=== PATIENT | female | born 1935 | race Caucasian/White ===

== ENCOUNTER 2016-09-28 12:06 | Emergency (ER) | payer MEDICARE ==
[~2016-09-28 12:06] MED LIST: ADV250INH INH; ASPI81TA85 PO; B-1210009 PO; CALC500T21 PO; CALC600T57 PO; CIPR500T3 PO; DUONSOL INH; FISH100049 PO; IRON325T PO; NEXI20CA PO; NEXI40CA PO; ZOCO40TA PO
[2016-09-28 15:09] LABS: BASO % 0.3 % (0.0-1.0); EOS # 0.3 K/mm3 (0.0-0.50); EOS % 3.7 % (0.0-3.0); LARGE UNSTAINED CELL # 0.1 K/mm3 (0.0-0.4); LARGE UNSTAINED CELL % 1.3 % (0.0-4.0); LYMPH # 1.6 K/mm3 (1.5-4.5); LYMPH % 19.7 % (24.0-44.0); MEAN CORPUSCULAR HEMOGLOBIN 31.3 pg (27.0-33.0); MEAN CORPUSCULAR HGB CONC 34.3 g/dl (32.0-36.5); MEAN CORPUSCULAR VOLUME 91.2 fl (80.0-96.0); MONO # 0.4 K/mm3 (0.0-0.8); MONO % 5.4 % (0.0-5.0); NEUTROPHILS # 5.6 K/mm3 (1.8-7.7); NEUTROPHILS % 69.6 % (36.0-66.0); PLATELET COUNT, AUTOMATED 234 k/mm3 (150-450); RED CELL DISTRIBUTION WIDTH 13.1 % (11.5-14.5)
--- NOTE | 2016-09-28 15:28 | REP ---
Left ribs four views: There is no rib fracture or other rib abnormality. Signed by Matt De La Torre MD 09/28/2016 03:19 P
[2016-09-28 15:30] LABS: ALBUMIN 3.1 GM/DL (3.2-5.2); ALKALINE PHOSPHATASE 80 U/L (45-117); ALT/SGPT 27 U/L (12-78); ANION GAP 9 MEQ/L (8-16); AST/SGOT 18 U/L (15-37); BILIRUBIN,TOTAL 0.6 MG/DL (0.2-1.0); BLOOD UREA NITROGEN 12 MG/DL (7-18); CARBON DIOXIDE LEVEL 27 MEQ/L (21-32); CHLORIDE LEVEL 99 MEQ/L (98-107); CREATININE FOR GFR 0.94 MG/DL (0.55-1.02); GLOMERULAR FILTRATION RATE > 60.0 (>32); GLUCOSE, FASTING 90 MG/DL (83-110); POTASSIUM SERUM 4.1 MEQ/L (3.5-5.1); SODIUM LEVEL 135 MEQ/L (136-145); T UPTAKE 38 % (30-39); TOTAL PROTEIN 7.5 GM/DL (6.4-8.2)
--- NOTE | 2016-09-28 15:30 | REP ---
Chest PA and lateral views: The PA view is included in the left rib series film file. There are no comparison studies. The left costophrenic angle is mildly effaced. This could represent pleural edema or a small left pleural effusion. There is no pneumothorax. The left lung is otherwise clear. Right lung is clear. Cardiac size is enlarged l. The todd, mediastinum, and bony thorax are unremarkable except for thoracic kyphosis. Impression: Pleural thickening versus a small left pleural effusion. Cardiomegaly. Kyphosis. Half Otherwise, negative PA and lateral chest. Signed by Matt De La Torre MD 09/28/2016 03:22 P
[2016-09-28] MEDS ORDERED: BISOPROLOL FUMARATE 5 MG TAB As Ordered ONE (15:33)
--- NOTE | 2016-09-28 15:56 | REP ---
RIGHT KNEE SERIES: Five views of the right knee were performed. There is no acute fracture or dislocation. There is mild chondrocalcinosis both in the medial and lateral joint compartments. There is mild of compartment narrowing. There is no joint effusion. IMPRESSION: No evidence of acute fracture or dislocation. Signed by Matt Lloyd MD 09/28/2016 07:58 P
--- NOTE | 2016-09-28 16:02 | REP ---
PELVIS AND LEFT HIP: AP view of the pelvis and AP and frog leg views of the left hip are performed. There is no acute fracture or dislocation. Moderate degenerative changes are seen at both hip joints with joint space narrowing, subchondral sclerosis and spurring. There is significant sclerosis at the pubic symphysis. IMPRESSION; Degenerative change. No evidence of acute fracture or dislocation. Signed by Matt Lloyd MD 09/28/2016 07:58 P
--- NOTE | 2016-09-28 16:48 | EDDOCDS ---
Nurse's Notes [facility] Name: Long Aaron Age: 81 yrs Sex: Female : 1935 Arrival Date: 09/28/2016 Time: 12:06 Bed 9 Private MD: Nico Torres Diagnosis: Chest pain, unspecified-Musculoskeletal Chest Pain;Chronic atrial fibrillation;Cardiomegaly;Pain in left hip;Osteoarthritis of hip-Left;Pain in right knee-Chondrocalcinosis on x-ray;Other kyphosis;Pleural effusion, not elsewhere classified-vs Pleural Thickening Presentation: 09/28 12:10 Presenting complaint: Patient states: pt reports falling yesterday in the kitchen. pt ead states "I just turned too abruptly and lost my balance." Pt reports left knee, left rib, and back pain. Denies hitting head, no LOC. Adult Sepsis Screening: The patient does not have new or worsening altered mentation. Patient's respiratory rate is less than 22. Systolic blood pressure is greater than 100. Patient has a qSOFA score of 0- Negative Sepsis Screen. Suicide/Homicide risk assessment- the patient denies having any suicidal and/or homicidal ideations and does not present with any other emotional, behavioral or mental health complaints. Status: Patient is not a customer services supervisor or dependent. Transition of care: patient was not received from another setting of care. 12:10 Acuity: PRIMO Level 4 ead 12:10 Method Of Arrival: Walkin/Carried/Asstd ead 14:14 Acuity: PRIMO Level 3 ead Triage Assessment: 12:14 General: Appears in no apparent distress, comfortable, well nourished, well groomed, ead Behavior is appropriate for age, cooperative. Pain: Location: back, buttocks and left knee. Pain: Pain currently is 8 out of 10 on a pain scale. Neurological: Level of Consciousness is awake, alert, obeys commands, Oriented to person, place, time. Respiratory: Airway is patent Respiratory effort is even, unlabored. Derm: Skin is pink, warm & dry. Musculoskeletal: Reports pain in back, buttocks and left knee. Historical: - Allergies: PENICILLINS; SULFA (SULFONAMIDES); - Home Meds: 1. Symbicort inhalation inhalation as needed 2. simvastatin 20 mg oral tab 2 times per day 3. bisoprolol fumarate 5 mg oral tab 0.5 tab once daily - PMHx: Asthma; Hypercholesterolemia; - PSHx: none; - Social history: No barriers to communication noted, The patient speaks fluent Iranian, Speaks appropriately for age, Smoking status: Patient states was never smoker of tobacco. - Family history: Not pertinent. - : The pt / caregiver states he / she is not on anticoagulants. Home medication list is obtained from the patient, family members. - Exposure Risk Screening:: None identified. Screenin:36 Screening information is obtained from the patient, family members. Fall risk: No risks hs1 identified. Assistance ADL's: requires no assistance with activities of daily living. Abuse/DV Screen: The patient / caregiver reports he/she is: not in a situation that causes fear, pain or injury. Nutritional screening: No deficits noted. Advance Directives: There is no active DNR order. home support is adequate. Assessment: 13:00 General: Appears in no apparent distress, comfortable, Behavior is appropriate for age, hs1 cooperative. Pain:. Pain: Location: buttocks and back and left knee Pain currently is 6 out of 10 on a pain scale. Neurological: Level of Consciousness is awake, alert, obeys commands, Oriented to person, place, time. Cardiovascular: Rhythm is atrial fibrillation. Respiratory: No deficits noted. Derm: Skin is pink, warm & dry. normal. 13:29 General: pt ambulated to bathroom without difficulty. ead 14:25 Reassessment: Patient appears in no apparent distress at this time. Patient states hs1 feeling better. Patient states symptoms have improved. Pt resting after xrays taken. Family continuing at bedside. . 15:48 Reassessment: Patient states feeling better. Patient states symptoms have improved. hs1 General: Appears in no apparent distress, comfortable, Behavior is appropriate for age, cooperative. Pain: Location: back Pain currently is 4 out of 10 on a pain scale. Respiratory: No deficits noted. GI: No deficits noted. 16:39 General: Appears in no apparent distress, comfortable, Behavior is appropriate for age, hs1 cooperative. Pain: Location: back Pain currently is 4 out of 10 on a pain scale. Derm: Bruising that is dark purple, on left mid back. Vital Signs: 12:08 BP 127 / 78; Pulse 120; Resp 18 S; Temp 97.9(T); Pulse Ox 96% on R/A; Weight 75.75 kg dd6 (R); Height 5 ft. 5 in. (165.10 cm) (R); 15:15 BP 128 / 72; Pulse 114 MON; Pulse Ox 96% ; hs1 15:55 BP 135 / 80; Pulse 96 MON; Pulse Ox 93% ; hs1 16:21 BP 124 / 76; Pulse 100 MON; Pulse Ox 95% ; hs1 16:22 BP 132 / 86 (auto/); Pulse 98; Resp 18; Temp 97.1(O); Pulse Ox 96% ; Pain 4/10; hs1 12:08 Body Mass Index 27.79 (75.75 kg, 165.10 cm) dd6 Vitals: 12:08 Log In Time: September 28, 2016 at 12:06. dd6 ED Course: 12:07 Patient visited by Ezra Kiran PCA. dd6 12:07 Patient moved to Waiting dd6 12:08 Nico Torres is Private Physician. dd6 12:09 Patient moved to Pre RCE dd6 12:12 Triage Initiated ead 12:54 Patient moved to Triage 2 ead 13:00 Inserted saline lock: 20 gauge in right antecubital area and blood collected. The hs1 patient tolerated the procedure well. 13:29 Patient visited by Alejandrina Kumar RN. ead 13:54 Lyn Adams PA-C is PHCP. ef1 13:54 Abigail Garcia MD is Attending Physician. ef1 14:02 Patient visited by Lyn Adams PA-C. ef1 14:26 EKG done. mdr 14:27 Patient visited by Daniel Gil PCA. mdr 14:27 EKG done. (by ED staff). Reviewed by Abigail Garcia MD. mdr 14:31 Betty Elliott, BALA is Primary Nurse. sd1 14:31 Patient moved to 19 sd1 14:31 Patient moved to 9 sd1 15:01 Complete Comphrensive Metabolic Sent. hs1 15:01 CBC with Diff Sent. hs1 15:01 Troponin Sent. hs1 15:02 Patient visited by Betty Elliott RN. hs1 15:15 THYROID PROFILE Sent. hs1 15:16 Patient visited by Lyn Adams PA-C. ef1 15:36 [facility] Payment Agreement was scanned into [employer] and attached to record. jp5 15:47 Patient visited by Lyn Adams PA-C. ef1 15:52 Rib Unilat W/PA Chest Only Returned. EDMS 15:52 Chest, 1 View Returned. EDMS 16:09 Patient visited by Lyn Adams PA-C. ef1 16:36 Nico Torres is Referral Physician. ef1 16:36 Darryl Sean is Referral Physician. ef1 16:37 Discontinued IV lock intact, bleeding controlled, pressure dressing applied, No hs1 redness/swelling at site. No procedures done that require assistance. 16:39 The patient / caregiver is instructed regarding the plan of care and ED course. hs1 16:44 Knee, Complete Returned. EDMS 16:44 Hip,AP,LAT to include Pelvis Returned. EDMS Administered Medications: 15:46 Drug: Bisoprolol 2.5 mg [bisoprolol fumarate 5 mg tablet (0.5 tabs)] Route: PO; hs1 Order Results: Lab Order: Cardiac Injury Profile; SPEC'M 09/28/16 14:49 Test: CPK CREATINE PHOSPHOKINASE; Value: 58; Range: 26-192; Units: U/L; Status: F Test: CK-MB VALUE MASS; Value: 1.4; Range: 0.0-3.6; Units: NG/ML; Status: F Test: MB/CK RELATIVE INDEX; Value: 2.41; Range: < OR =4; Status: F Test Note: ; DIAGNOSIS CRITERIA MMB ng/ml Relative Index (RI) NON-AMI < or = 5 N/A MARTINEZ ZONE > 5 < or = 4 AMI > 5 > 4 Lab Order: Troponin; SPEC'M 09/28/16 14:49 Test: TROPONIN I; Value: < 0.02; Range: < 0.10; Units: NG/ML; Status: F Test Note: ; Troponin I Reference Interval for [place] LOCI: 99th Percentile= 0.00-0.045 ng/ml Risk Stratification: <= 0.10 ng/ml Decreased Risk for Adverse Clinical Events. 0.10-1.50 ng/ml Increased Risk for Adverse Clinical Events. Evaluation of additional criterion and/or repeat testing in 2-6 hours is suggested to rule out myocardial damage. >= 1.50 ng/ml Indicative of Myocardial Injury. Lab Order: CBC with Diff; SPEC'M 09/28/16 14:49 Test: WHITE BLOOD COUNT; Value: 8.0; Range: 4.0-10.0; Units: K/mm3; Status: F Test: RED BLOOD COUNT; Value: 4.28; Range: 4.00-5.40; Units: M/mm3; Status: F Test: HEMOGLOBIN; Value: 13.4; Range: 12.0-16.0; Units: g/dl; Status: F Test: HEMATOCRIT; Value: 39.0; Range: 36.0-47.0; Units: %; Status: F Test: MEAN CORPUSCULAR VOLUME; Value: 91.2; Range: 80.0-96.0; Units: fl; Status: F Test: MEAN CORPUSCULAR HEMOGLOBIN; Value: 31.3; Range: 27.0-33.0; Units: pg; Status: F Test: MEAN CORPUSCULAR HGB CONC; Value: 34.3; Range: 32.0-36.5; Units: g/dl; Status: F Test: RED CELL DISTRIBUTION WIDTH; Value: 13.1; Range: 11.5-14.5; Units: %; Status: F Test: PLATELET COUNT, AUTOMATED; Value: 234; Range: 150-450; Units: k/mm3; Status: F Test: NEUTROPHILS %; Value: 69.6; Range: 36.0-66.0; Abnormal: Above high normal; Units: %; Status: F Test: LYMPH %; Value: 19.7; Range: 24.0-44.0; Abnormal: Below low normal; Units: %; Status: F Test: MONO %; Value: 5.4; Range: 0.0-5.0; Abnormal: Above high normal; Units: %; Status: F Test: EOS %; Value: 3.7; Range: 0.0-3.0; Abnormal: Above high normal; Units: %; Status: F Test: BASO %; Value: 0.3; Range: 0.0-1.0; Units: %; Status: F Test: LARGE UNSTAINED CELL %; Value: 1.3; Range: 0.0-4.0; Units: %; Status: F Test: NEUTROPHILS #; Value: 5.6; Range: 1.8-7.7; Units: K/mm3; Status: F Test: LYMPH #; Value: 1.6; Range: 1.5-4.5; Units: K/mm3; Status: F Test: MONO #; Value: 0.4; Range: 0.0-0.8; Units: K/mm3; Status: F Test: EOS #; Value: 0.3; Range: 0.0-0.50; Units: K/mm3; Status: F Test: BASO #; Value: 0.0; Range: 0.0-0.2; Units: K/mm3; Status: F Test: LARGE UNSTAINED CELL #; Value: 0.1; Range: 0.0-0.4; Units: K/mm3; Status: F Lab Order: Complete Comphrensive Metabolic; SPEC'M 09/28/16 14:49 Test: GLUCOSE, FASTING; Value: 90; Range: 83-110; Units: MG/DL; Status: F Test: BLOOD UREA NITROGEN; Value: 12; Range: 7-18; Units: MG/DL; Status: F Test: CREATININE FOR GFR; Value: 0.94; Range: 0.55-1.02; Units: MG/DL; Status: F Test: GLOMERULAR FILTRATION RATE; Value: > 60.0; Range: >32; Status: F Test: SODIUM LEVEL; Value: 135; Range: 136-145; Abnormal: Below low normal; Units: MEQ/L; Status: F Test: POTASSIUM SERUM; Value: 4.1; Range: 3.5-5.1; Units: MEQ/L; Status: F Test: CHLORIDE LEVEL; Value: 99; Range: 98-107; Units: MEQ/L; Status: F Test: CARBON DIOXIDE LEVEL; Value: 27; Range: 21-32; Units: MEQ/L; Status: F Test: ANION GAP; Value: 9; Range: 8-16; Units: MEQ/L; Status: F Test: CALCIUM LEVEL; Value: 9.0; Range: 8.8-10.2; Units: MG/DL; Status: F Test: AST/SGOT; Value: 18; Range: 15-37; Units: U/L; Status: F Test: ALT/SGPT; Value: 27; Range: 12-78; Units: U/L; Status: F Test: ALKALINE PHOSPHATASE; Value: 80; Range: 45-117; Units: U/L; Status: F Test: BILIRUBIN,TOTAL; Value: 0.6; Range: 0.2-1.0; Units: MG/DL; Status: F Test: TOTAL PROTEIN; Value: 7.5; Range: 6.4-8.2; Units: GM/DL; Status: F Test: ALBUMIN; Value: 3.1; Range: 3.2-5.2; Abnormal: Below low normal; Units: GM/DL; Status: F Test: ALBUMIN/GLOBULIN RATIO; Value: 0.70; Range: 1.00-1.93; Abnormal: Below low normal; Status: F Test Note: ; Units are mL/min/1.73 m2 Chronic Kidney Disease Staging per NKF: Stage I & II GFR >=60 Normal to Mildly Decreased Stage III GFR 30-59 Moderately Decreased Stage IV GFR 15-29 Severely Decreased Stage V GFR <15 Very Little GFR Left ESRD GFR <15 on VOCATIONAL ADVISER Lab Order: THYROID PROFILE; [facility]'M 09/28/16 14:49 Test: T UPTAKE; Value: 38; Range: 30-39; Units: %; Status: F Test: THYROXINE (T4); Value: 11.0; Range: 4.5-12.0; Units: UG/DL; Status: F Test: FREE THYROXINE INDEX; Value: 4.2; Range: 1.3-4.8; Units: %; Status: F Test: THYROID STIMULATING HORMONE; Value: 4.550; Range: 0.358-3.740; Abnormal: Above high normal; Units: uIU/ML; Status: F Radiology Order: Rib Unilat W/PA Chest Only Test: Rib Unilat W/PA Chest Only REASON FOR EXAMINATION: Trauma; Left ribs four views:; ; There is no rib fracture or other rib abnormality.; ; ; Signed by; Matt De La Torre MD 09/28/2016 03:19 P; Radiology Order: Knee, Complete Test: Knee, Complete REASON FOR EXAMINATION: Trauma; ; RIGHT KNEE SERIES:; ; Five views of the right knee were performed. There is no acute fracture or; dislocation. There is mild chondrocalcinosis both in the medial and lateral joint; compartments. There is mild pf compartment narrowing. There is no joint effusion.; ; ; IMPRESSION:; No evidence of acute fracture or dislocation.; ; Unreviewed; Radiology Order: Hip,AP,LAT to include Pelvis Test: Hip,AP,LAT to include Pelvis REASON FOR EXAMINATION: Trauma; ; PELVIS AND LEFT HIP:; ; AP view of the pelvis and AP and frog leg views of the left hip are performed.; There is no acute fracture or dislocation. Moderate degenerative changes are seen; at both hip joints with joint space narrowing, subchondral sclerosis and; spurring. There is significant sclerosis at the pubic symphysis.; ; IMPRESSION;; Degenerative change. No evidence of acute fracture or dislocation.; ; ; ; Unreviewed; Radiology Order: Chest, 1 View Test: Chest, 1 View REASON FOR EXAMINATION: Chest Pain; Chest PA and lateral views:; ; The PA view is included in the left rib series film file.; ; There are no comparison studies.; ; The left costophrenic angle is mildly effaced. This could represent pleural; edema or a small left pleural effusion.; ; There is no pneumothorax. The left lung is otherwise clear.; ; Right lung is clear. Cardiac size is enlarged l. The todd, mediastinum, and; bony thorax are unremarkable except for thoracic kyphosis.; ; Impression:; ; Pleural thickening versus a small left pleural effusion. Cardiomegaly. Kyphosis.; Half Otherwise, negative PA and lateral chest.; ; ; Signed by; Matt De La Torre MD 09/28/2016 03:22 P; Outcome: 16:36 Discharge ordered by Provider. ef1 16:37 Discharge Assessment: Patient awake, alert and oriented x 3. No cognitive and/or hs1 functional deficits noted. Patient verbalized understanding of disposition instructions. patient administered narcotics - no. The following High Risk Discharge criteria are identified: None. Discharged to home ambulatory. Condition: stable. Discharge instructions given to patient, family, Instructed on discharge instructions, follow up and referral plans. medication usage, Demonstrated understanding of instructions, medications, Pt was receptive of discharge instructions/ teaching. No special radiology studies were completed. Property sent home with patient. 16:47 Patient left the ED. hs1 Signatures: Dispatcher [facility] Abigail Garcia MD MD sd1 Ezra Kiran, CUSHION ASSEMBLER CUSHION ASSEMBLER dd6 Lyn Adams PA-C PABrandyC ef1 Betty Elliott, RN RN hs1 Alejandrina Kumar,BALA RN ead Itzel Bright jp5 Daniel Gil, CUSHION ASSEMBLER CUSHION ASSEMBLER mdr Corrections: (The following items were deleted from the chart) 15:14 15:01 THYROID PROFILE+LAB sent. hs1 EDMS 15:15 13:00 Cardiovascular: Rhythm is sinus rhythm No ectopy. hs1 hs1 MTDD
--- NOTE | 2016-09-28 16:48 | EDDOCDS ---
Physician Documentation [facility] Name: Long Aaron Age: 81 yrs Sex: Female : 1935 Arrival Date: 09/28/2016 Time: 12:06 Bed 9 Private MD: Nico Torres Disposition: 09/28/16 16:36 Discharged to Home/Self Care. Impression: Chest pain, unspecified - Musculoskeletal Chest Pain, Chronic atrial fibrillation, Cardiomegaly, Pain in left hip, Osteoarthritis of hip - Left, Pain in right knee - Chondrocalcinosis on x-ray, Other kyphosis, Pleural effusion, not elsewhere classified - vs Pleural Thickening. - Condition is Stable. - Discharge Instructions: Musculoskeletal Pain, Pleural Effusion, Arthritis, Nonspecific, Dxni-rt-Ugne. - Prescriptions for Tylenol- Codeine #3 300-30 mg Oral Tablet - take 1 tablet by ORAL route every 6 hours As needed MDD: 4 tabs; 10 tablet. - Medication Reconciliation, Local Pharmacy Hours form. - Follow up: Nico Torres; When: 1 - 2 days; Reason: Recheck today's complaints, Continuance of care. Follow up: Emergency Department; Reason: Worsening of conditions. Follow up: Darryl Sena; When: Call to arrange an appointment; Reason: Further diagnostic work-up, Recheck today's complaints, Continuance of care. - Problem is new. - Symptoms have improved. Historical: - Allergies: PENICILLINS; SULFA (SULFONAMIDES); - Home Meds: 1. Symbicort inhalation inhalation as needed 2. simvastatin 20 mg oral tab 2 times per day 3. bisoprolol fumarate 5 mg oral tab 0.5 tab once daily - PMHx: Asthma; Hypercholesterolemia; - PSHx: none; - Social history: No barriers to communication noted, The patient speaks fluent Italian, Speaks appropriately for age, Smoking status: Patient states was never smoker of tobacco. - Family history: Not pertinent. - : The pt / caregiver states he / she is not on anticoagulants. Home medication list is obtained from the patient, family members. - Exposure Risk Screening:: None identified. Vital Signs: 09/28 12:08 BP 127 / 78; Pulse 120; Resp 18 S; Temp 97.9(T); Pulse Ox 96% on R/A; Weight 75.75 kg / dd6 167 lbs (R); Height 5 ft. 5 in. (165.10 cm) (R); 15:15 BP 128 / 72; Pulse 114 MON; Pulse Ox 96% ; hs1 15:55 BP 135 / 80; Pulse 96 MON; Pulse Ox 93% ; hs1 16:21 BP 124 / 76; Pulse 100 MON; Pulse Ox 95% ; hs1 16:22 BP 132 / 86 (auto/); Pulse 98; Resp 18; Temp 97.1(O); Pulse Ox 96% ; Pain 4/10; hs1 12:08 Body Mass Index 27.79 (75.75 kg, 165.10 cm) dd6 MDM: 14:13 IV Saline Lock ordered. ef1 14:13 Rib Unilat W/PA Chest Only Ordered. EDMS 14:13 Knee, Complete Ordered. EDMS 14:13 Hip,AP,LAT to include Pelvis Ordered. EDMS 14:14 ECG WITH READING ER PHYS+CARDIAG ordered. EDMS 14:14 Cardiac Injury Profile Ordered. EDMS 14:14 Troponin Ordered. EDMS 14:14 CBC with Diff Ordered. EDMS 14:14 Complete Comphrensive Metabolic Ordered. EDMS 14:30 Steam Cleaning Machine Operator/Pulse Ox/q 30 min VS ordered. sd1 14:32 Chest, 1 View Ordered. EDMS 15:14 THYROID PROFILE Ordered. EDMS 15:16 CBC with Diff Reviewed. ef1 15:33 Bisoprolol 2.5 mg PO once ordered. sd1 15:33 Complete Comphrensive Metabolic Reviewed. sd1 15:33 Troponin Reviewed. sd1 15:36 [facility] Payment Agreement was scanned into [employer] and attached to record. jp5 15:36 Financial registration complete. jp5 16:09 Complete Comphrensive Metabolic Reviewed. ef1 16:09 THYROID PROFILE Reviewed. ef1 16:09 Cardiac Injury Profile Reviewed. ef1 16:09 Troponin Reviewed. ef1 16:09 Rib Unilat W/PA Chest Only Reviewed. ef1 16:09 Chest, 1 View Reviewed. ef1 Administered Medications: 15:46 Drug: Bisoprolol 2.5 mg [bisoprolol fumarate 5 mg tablet (0.5 tabs)] Route: PO; hs1 Signatures: Dispatcher [employer] EDMS Abigail Garcia MD MD sd1 Lyn Adasm PA-C PA-C ef1 Betty Elliott, RN RN hs1 Alejandrina Kumar,RN RN Itzel Arcos jp5 The chart was reviewed and I authenticate all verbal orders and agree with the evaluation and treatment provided.Corrections: (The following items were deleted from the chart) 15:14 14:30 THYROID PROFILE+LAB ordered. EDMS EDMS Attachments: 15:36 [facility] Payment Agreement jp5 MTDD
--- NOTE | 2016-09-28 20:28 | ECGEPIP ---
Stationary ECG Study [facility] - ED Test Date: 2016-09-28 Pat Name: CRISTINA ERNST Department: Room: - Gender: F Drill Press Set Up Operator: : 1935 Requested By: Lyn Adams PA-C Order Number: [id number] Reading MD: Abigail Garcia Measurements Intervals [place] Rate: 104 P: IN: 0 QRS: 14 QRSD: 93 T: 19 QT: 340 QTc: 449 Interpretive Statements ATRIAL FIBRILLATION WITH RAPID VENTRICULAR RESPONSE ABNORMAL RHYTHM ECG LOW [place] NSTTW ABNORMALITY NO PRIOR FOR COMPARISON Electronically Signed On 09-28-2016 20:27:55 EST by Abigail Garcia
--- NOTE | 2016-09-30 17:48 | EDDOCDS ---
Nurse's Notes [facility] Name: Long Ernst Age: 81 yrs Sex: Female : 1935 Arrival Date: 09/28/2016 Time: 12:06 Bed 9 Private MD: Nico Torres Diagnosis: Chest pain, unspecified-Musculoskeletal Chest Pain;Chronic atrial fibrillation;Cardiomegaly;Pain in left hip;Osteoarthritis of hip-Left;Pain in right knee-Chondrocalcinosis on x-ray;Other kyphosis;Pleural effusion, not elsewhere classified-vs Pleural Thickening Presentation: 09/28 12:10 Presenting complaint: Patient states: pt reports falling yesterday in the kitchen. pt ead states "I just turned too abruptly and lost my balance." Pt reports left knee, left rib, and back pain. Denies hitting head, no LOC. Adult Sepsis Screening: The patient does not have new or worsening altered mentation. Patient's respiratory rate is less than 22. Systolic blood pressure is greater than 100. Patient has a qSOFA score of 0- Negative Sepsis Screen. Suicide/Homicide risk assessment- the patient denies having any suicidal and/or homicidal ideations and does not present with any other emotional, behavioral or mental health complaints. 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 Transition of care: patient was not received from another setting of care. 12:10 Acuity: PRIMO Level 4 ead 12:10 Method Of Arrival: Walkin/Carried/Asstd ead 14:14 Acuity: PRIMO Level 3 ead Triage Assessment: 12:14 General: Appears in no apparent distress, comfortable, well nourished, well groomed, ead Behavior is appropriate for age, cooperative. Pain: Location: back, buttocks and left knee. Pain: Pain currently is 8 out of 10 on a pain scale. Neurological: Level of Consciousness is awake, alert, obeys commands, Oriented to person, place, time. Respiratory: Airway is patent Respiratory effort is even, unlabored. Derm: Skin is pink, warm & dry. Musculoskeletal: Reports pain in back, buttocks and left knee. Historical: - Allergies: PENICILLINS; SULFA (SULFONAMIDES); - Home Meds: 1. Symbicort inhalation inhalation as needed 2. simvastatin 20 mg oral tab 2 times per day 3. bisoprolol fumarate 5 mg oral tab 0.5 tab once daily - PMHx: Asthma; Hypercholesterolemia; - PSHx: none; - Social history: No barriers to communication noted, The patient speaks fluent Syrian, Speaks appropriately for age, Smoking status: Patient states was never smoker of tobacco. - Family history: Not pertinent. - : The pt / caregiver states he / she is not on anticoagulants. Home medication list is obtained from the patient, family members. - Exposure Risk Screening:: None identified. Screenin:36 Screening information is obtained from the patient, family members. Fall risk: No risks hs1 identified. Assistance ADL's: requires no assistance with activities of daily living. Abuse/DV Screen: The patient / caregiver reports he/she is: not in a situation that causes fear, pain or injury. Nutritional screening: No deficits noted. Advance Directives: There is no active DNR order. home support is adequate. Assessment: 13:00 General: Appears in no apparent distress, comfortable, Behavior is appropriate for age, hs1 cooperative. Pain:. Pain: Location: buttocks and back and left knee Pain currently is 6 out of 10 on a pain scale. Neurological: Level of Consciousness is awake, alert, obeys commands, Oriented to person, place, time. Cardiovascular: Rhythm is atrial fibrillation. Respiratory: No deficits noted. Derm: Skin is pink, warm & dry. normal. 13:29 General: pt ambulated to bathroom without difficulty. ead 14:25 Reassessment: Patient appears in no apparent distress at this time. Patient states hs1 feeling better. Patient states symptoms have improved. Pt resting after xrays taken. Family continuing at bedside. . 15:48 Reassessment: Patient states feeling better. Patient states symptoms have improved. hs1 General: Appears in no apparent distress, comfortable, Behavior is appropriate for age, cooperative. Pain: Location: back Pain currently is 4 out of 10 on a pain scale. Respiratory: No deficits noted. GI: No deficits noted. 16:39 General: Appears in no apparent distress, comfortable, Behavior is appropriate for age, hs1 cooperative. Pain: Location: back Pain currently is 4 out of 10 on a pain scale. Derm: Bruising that is dark purple, on left mid back. Vital Signs: 12:08 BP 127 / 78; Pulse 120; Resp 18 S; Temp 97.9(T); Pulse Ox 96% on R/A; Weight 75.75 kg dd6 (R); Height 5 ft. 5 in. (165.10 cm) (R); 15:15 BP 128 / 72; Pulse 114 MON; Pulse Ox 96% ; hs1 15:55 BP 135 / 80; Pulse 96 MON; Pulse Ox 93% ; hs1 16:21 BP 124 / 76; Pulse 100 MON; Pulse Ox 95% ; hs1 16:22 BP 132 / 86 (auto/); Pulse 98; Resp 18; Temp 97.1(O); Pulse Ox 96% ; Pain 4/10; hs1 12:08 Body Mass Index 27.79 (75.75 kg, 165.10 cm) dd6 Vitals: 12:08 Log In Time: September 28, 2016 at 12:06. dd6 ED Course: 12:07 Patient visited by Ezra Kiran PCA. dd6 12:07 Patient moved to Waiting dd6 12:08 Nico Torres is Private Physician. dd6 12:09 Patient moved to Pre RCE dd6 12:12 Triage Initiated ead 12:54 Patient moved to Triage 2 ead 13:00 Inserted saline lock: 20 gauge in right antecubital area and blood collected. The hs1 patient tolerated the procedure well. 13:29 Patient visited by Alejandrina Kumar RN. ead 13:54 Lyn Adams PA-C is PHCP. ef1 13:54 Abigail Garcia MD is Attending Physician. ef1 14:02 Patient visited by Lyn Adams PA-C. ef1 14:26 EKG done. mdr 14:27 Patient visited by Daniel Gil PCA. mdr 14:27 EKG done. (by ED staff). Reviewed by Abigail Garcia MD. mdr 14:31 Betty Elliott, BALA is Primary Nurse. sd1 14:31 Patient moved to 19 sd1 14:31 Patient moved to 9 sd1 15:01 Complete Comphrensive Metabolic Sent. hs1 15:01 CBC with Diff Sent. hs1 15:01 Troponin Sent. hs1 15:02 Patient visited by Betty Elliott RN. hs1 15:15 THYROID PROFILE Sent. hs1 15:16 Patient visited by Lyn Adams PA-C. ef1 15:36 [facility] Payment Agreement was scanned into [employer] and attached to record. jp5 15:47 Patient visited by Lyn Adams PA-C. ef1 15:52 Rib Unilat W/PA Chest Only Returned. EDMS 15:52 Chest, 1 View Returned. EDMS 16:09 Patient visited by Lyn Adams PA-C. ef1 16:36 Nico Torres is Referral Physician. ef1 16:36 Darryl Sena is Referral Physician. ef1 16:37 Discontinued IV lock intact, bleeding controlled, pressure dressing applied, No hs1 redness/swelling at site. No procedures done that require assistance. 16:39 The patient / caregiver is instructed regarding the plan of care and ED course. hs1 16:44 Knee, Complete Returned. EDMS 16:44 Hip,AP,LAT to include Pelvis Returned. EDMS 21:17 EKG-ADULT Returned. EDMS 09/29 03:22 T-Sheet-- Draft Copy was scanned into [employer] and attached to record. hs2 10:33 ECG/EKG was scanned into [employer] and attached to record. gb 10:33 Radiology Report was scanned into [employer] and attached to record. gb Administered Medications: 09/28 15:46 Drug: Bisoprolol 2.5 mg [bisoprolol fumarate 5 mg tablet (0.5 tabs)] Route: PO; hs1 Order Results: Lab Order: Cardiac Injury Profile; SPEC'M 09/28/16 14:49 Test: CPK CREATINE PHOSPHOKINASE; Value: 58; Range: 26-192; Units: U/L; Status: F Test: CK-MB VALUE MASS; Value: 1.4; Range: 0.0-3.6; Units: NG/ML; Status: F Test: MB/CK RELATIVE INDEX; Value: 2.41; Range: < OR =4; Status: F Test Note: ; DIAGNOSIS CRITERIA MMB ng/ml Relative Index (RI) NON-AMI < or = 5 N/A [place]ONE > 5 < or = 4 AMI > 5 > 4 Lab Order: Troponin; SPEC'M 09/28/16 14:49 Test: TROPONIN I; Value: < 0.02; Range: < 0.10; Units: NG/ML; Status: F Test Note: ; Troponin I Reference Interval for Siemens Dillard LOCI: 99th Percentile= 0.00-0.045 ng/ml Risk Stratification: <= 0.10 ng/ml Decreased Risk for Adverse Clinical Events. 0.10-1.50 ng/ml Increased Risk for Adverse Clinical Events. Evaluation of additional criterion and/or repeat testing in 2-6 hours is suggested to rule out myocardial damage. >= 1.50 ng/ml Indicative of Myocardial Injury. Lab Order: CBC with Diff; SPEC'M 09/28/16 14:49 Test: WHITE BLOOD COUNT; Value: 8.0; Range: 4.0-10.0; Units: K/mm3; Status: F Test: RED BLOOD COUNT; Value: 4.28; Range: 4.00-5.40; Units: M/mm3; Status: F Test: HEMOGLOBIN; Value: 13.4; Range: 12.0-16.0; Units: g/dl; Status: F Test: HEMATOCRIT; Value: 39.0; Range: 36.0-47.0; Units: %; Status: F Test: MEAN CORPUSCULAR VOLUME; Value: 91.2; Range: 80.0-96.0; Units: fl; Status: F Test: MEAN CORPUSCULAR HEMOGLOBIN; Value: 31.3; Range: 27.0-33.0; Units: pg; Status: F Test: MEAN CORPUSCULAR HGB CONC; Value: 34.3; Range: 32.0-36.5; Units: g/dl; Status: F Test: RED CELL DISTRIBUTION WIDTH; Value: 13.1; Range: 11.5-14.5; Units: %; Status: F Test: PLATELET COUNT, AUTOMATED; Value: 234; Range: 150-450; Units: k/mm3; Status: F Test: NEUTROPHILS %; Value: 69.6; Range: 36.0-66.0; Abnormal: Above high normal; Units: %; Status: F Test: LYMPH %; Value: 19.7; Range: 24.0-44.0; Abnormal: Below low normal; Units: %; Status: F Test: MONO %; Value: 5.4; Range: 0.0-5.0; Abnormal: Above high normal; Units: %; Status: F Test: EOS %; Value: 3.7; Range: 0.0-3.0; Abnormal: Above high normal; Units: %; Status: F Test: BASO %; Value: 0.3; Range: 0.0-1.0; Units: %; Status: F Test: LARGE UNSTAINED CELL %; Value: 1.3; Range: 0.0-4.0; Units: %; Status: F Test: NEUTROPHILS #; Value: 5.6; Range: 1.8-7.7; Units: K/mm3; Status: F Test: LYMPH #; Value: 1.6; Range: 1.5-4.5; Units: K/mm3; Status: F Test: MONO #; Value: 0.4; Range: 0.0-0.8; Units: K/mm3; Status: F Test: EOS #; Value: 0.3; Range: 0.0-0.50; Units: K/mm3; Status: F Test: BASO #; Value: 0.0; Range: 0.0-0.2; Units: K/mm3; Status: F Test: LARGE UNSTAINED CELL #; Value: 0.1; Range: 0.0-0.4; Units: K/mm3; Status: F Lab Order: Complete Comphrensive Metabolic; SPEC'M 09/28/16 14:49 Test: GLUCOSE, FASTING; Value: 90; Range: 83-110; Units: MG/DL; Status: F Test: BLOOD UREA NITROGEN; Value: 12; Range: 7-18; Units: MG/DL; Status: F Test: CREATININE FOR GFR; Value: 0.94; Range: 0.55-1.02; Units: MG/DL; Status: F Test: GLOMERULAR FILTRATION RATE; Value: > 60.0; Range: >32; Status: F Test: SODIUM LEVEL; Value: 135; Range: 136-145; Abnormal: Below low normal; Units: MEQ/L; Status: F Test: POTASSIUM SERUM; Value: 4.1; Range: 3.5-5.1; Units: MEQ/L; Status: F Test: CHLORIDE LEVEL; Value: 99; Range: 98-107; Units: MEQ/L; Status: F Test: CARBON DIOXIDE LEVEL; Value: 27; Range: 21-32; Units: MEQ/L; Status: F Test: ANION GAP; Value: 9; Range: 8-16; Units: MEQ/L; Status: F Test: CALCIUM LEVEL; Value: 9.0; Range: 8.8-10.2; Units: MG/DL; Status: F Test: AST/SGOT; Value: 18; Range: 15-37; Units: U/L; Status: F Test: ALT/SGPT; Value: 27; Range: 12-78; Units: U/L; Status: F Test: ALKALINE PHOSPHATASE; Value: 80; Range: 45-117; Units: U/L; Status: F Test: BILIRUBIN,TOTAL; Value: 0.6; Range: 0.2-1.0; Units: MG/DL; Status: F Test: TOTAL PROTEIN; Value: 7.5; Range: 6.4-8.2; Units: GM/DL; Status: F Test: ALBUMIN; Value: 3.1; Range: 3.2-5.2; Abnormal: Below low normal; Units: GM/DL; Status: F Test: ALBUMIN/GLOBULIN RATIO; Value: 0.70; Range: 1.00-1.93; Abnormal: Below low normal; Status: F Test Note: ; Units are mL/min/1.73 m2 Chronic Kidney Disease Staging per NKF: Stage I & II GFR >=60 Normal to Mildly Decreased Stage III GFR 30-59 Moderately Decreased Stage IV GFR 15-29 Severely Decreased Stage V GFR <15 Very Little GFR Left ESRD GFR <15 on NECK BAND SETTER Lab Order: THYROID PROFILE; SPEC'M 09/28/16 14:49 Test: T UPTAKE; Value: 38; Range: 30-39; Units: %; Status: F Test: THYROXINE (T4); Value: 11.0; Range: 4.5-12.0; Units: UG/DL; Status: F Test: FREE THYROXINE INDEX; Value: 4.2; Range: 1.3-4.8; Units: %; Status: F Test: THYROID STIMULATING HORMONE; Value: 4.550; Range: 0.358-3.740; Abnormal: Above high normal; Units: uIU/ML; Status: F Radiology Order: Rib Unilat W/PA Chest Only Test: Rib Unilat W/PA Chest Only REASON FOR EXAMINATION: Trauma; Left ribs four views:; ; There is no rib fracture or other rib abnormality.; ; ; Signed by; Matt De La Torre MD 09/28/2016 03:19 P; Radiology Order: Knee, Complete Test: Knee, Complete REASON FOR EXAMINATION: Trauma; RIGHT KNEE SERIES:; ; Five views of the right knee were performed. There is no acute fracture or; dislocation. There is mild chondrocalcinosis both in the medial and lateral joint; compartments. There is mild of compartment narrowing. There is no joint effusion.; ; ; IMPRESSION:; ; No evidence of acute fracture or dislocation.; ; ; Signed by; Matt Lloyd MD 09/28/2016 07:58 P; Radiology Order: Hip,AP,LAT to include Pelvis Test: Hip,AP,LAT to include Pelvis REASON FOR EXAMINATION: Trauma; PELVIS AND LEFT HIP:; ; AP view of the pelvis and AP and frog leg views of the left hip are performed.; There is no acute fracture or dislocation. Moderate degenerative changes are seen; at both hip joints with joint space narrowing, subchondral sclerosis and; spurring. There is significant sclerosis at the pubic symphysis.; ; IMPRESSION;; ; Degenerative change. No evidence of acute fracture or dislocation.; ; ; Signed by; Matt Lloyd MD 09/28/2016 07:58 P; Radiology Order: EKG-ADULT Test: EKG-ADULT REASON FOR EXAMINATION: dizziness; Stationary ECG Study; 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; : 1935 Requested By: Lyn Adams PA-C; Order Number: [id number] Reading MD: Abigail Garcia; Measurements; Intervals [place]; Rate: 104 P:; ID: 0 QRS: 14; QRSD: 93 T: 19; QT: 340; QTc: 449; Interpretive Statements; ATRIAL FIBRILLATION WITH RAPID VENTRICULAR RESPONSE; ABNORMAL RHYTHM ECG; LOW VOLTAGE LIMB; NSTTW ABNORMALITY; NO PRIOR FOR COMPARISON; Electronically Signed On 09-28-2016 20:27:55 EST by Abigail Garcia; Radiology Order: Chest, 1 View Test: Chest, 1 View REASON FOR EXAMINATION: Chest Pain; Chest PA and lateral views:; ; The PA view is included in the left rib series film file.; ; There are no comparison studies.; ; The left costophrenic angle is mildly effaced. This could represent pleural; edema or a small left pleural effusion.; ; There is no pneumothorax. The left lung is otherwise clear.; ; Right lung is clear. Cardiac size is enlarged l. The todd, mediastinum, and; bony thorax are unremarkable except for thoracic kyphosis.; ; Impression:; ; Pleural thickening versus a small left pleural effusion. Cardiomegaly. Kyphosis.; Half Otherwise, negative PA and lateral chest.; ; ; Signed by; Matt De La Torre MD 09/28/2016 03:22 P; Outcome: 16:36 Discharge ordered by Provider. ef1 16:37 Discharge Assessment: Patient awake, alert and oriented x 3. No cognitive and/or hs1 functional deficits noted. Patient verbalized understanding of disposition instructions. patient administered narcotics - no. The following High Risk Discharge criteria are identified: None. Discharged to home ambulatory. Condition: stable. Discharge instructions given to patient, family, Instructed on discharge instructions, follow up and referral plans. medication usage, Demonstrated understanding of instructions, medications, Pt was receptive of discharge instructions/ teaching. No special radiology studies were completed. Property sent home with patient. 16:47 Patient left the ED. [facility] Signatures: Dispatcher [employer] EDMS Abigail Garcia MD MD sd1 Alysa Oliveira, Reg Reg gb Ezra Kiran, CONING MACHINE OPERATOR CONING MACHINE OPERATOR dd6 Lyn Adams, PA-C PA-C ef1 Betty Elliott, BALA RN hs1 Alejandrina Kumar,RN RN Itzel Arcos jp5 Daniel Gil, CONING MACHINE OPERATOR CONING MACHINE OPERATOR mdr Saloni Ashley, Reg Reg hs2 Corrections: (The following items were deleted from the chart) 15:14 15:01 THYROID PROFILE+LAB sent. [facility] EDOH 15:15 13:00 Cardiovascular: Rhythm is sinus rhythm No ectopy. 1 hs1 Chart Complete MTDD
--- NOTE | 2016-09-30 17:48 | EDDOCDS ---
Physician Documentation [facility] Name: Long Aaron Age: 81 yrs Sex: Female : 1935 Arrival Date: 09/28/2016 Time: 12:06 Bed 9 Private MD: Nico Torres Disposition: 09/28/16 16:36 Discharged to Home/Self Care. Impression: Chest pain, unspecified - Musculoskeletal Chest Pain, Chronic atrial fibrillation, Cardiomegaly, Pain in left hip, Osteoarthritis of hip - Left, Pain in right knee - Chondrocalcinosis on x-ray, Other kyphosis, Pleural effusion, not elsewhere classified - vs Pleural Thickening. - Condition is Stable. - Discharge Instructions: Musculoskeletal Pain, Pleural Effusion, Arthritis, Nonspecific, [id number]. - Prescriptions for Tylenol- Codeine #3 300-30 mg Oral Tablet - take 1 tablet by ORAL route every 6 hours As needed MDD: 4 tabs; 10 tablet. - Medication Reconciliation, Local Pharmacy Hours form. - Follow up: Nico Torres; When: 1 - 2 days; Reason: Recheck today's complaints, Continuance of care. Follow up: Emergency Department; Reason: Worsening of conditions. Follow up: Darryl Sena; When: Call to arrange an appointment; Reason: Further diagnostic work-up, Recheck today's complaints, Continuance of care. - Problem is new. - Symptoms have improved. Historical: - Allergies: PENICILLINS; SULFA (SULFONAMIDES); - Home Meds: 1. Symbicort inhalation inhalation as needed 2. simvastatin 20 mg oral tab 2 times per day 3. bisoprolol fumarate 5 mg oral tab 0.5 tab once daily - PMHx: Asthma; Hypercholesterolemia; - PSHx: none; - Social history: No barriers to communication noted, The patient speaks fluent Estonian, Speaks appropriately for age, Smoking status: Patient states was never smoker of tobacco. - Family history: Not pertinent. - : The pt / caregiver states he / she is not on anticoagulants. Home medication list is obtained from the patient, family members. - Exposure Risk Screening:: None identified. Vital Signs: 09/28 12:08 BP 127 / 78; Pulse 120; Resp 18 S; Temp 97.9(T); Pulse Ox 96% on R/A; Weight 75.75 kg / dd6 167 lbs (R); Height 5 ft. 5 in. (165.10 cm) (R); 15:15 BP 128 / 72; Pulse 114 MON; Pulse Ox 96% ; hs1 15:55 BP 135 / 80; Pulse 96 MON; Pulse Ox 93% ; hs1 16:21 BP 124 / 76; Pulse 100 MON; Pulse Ox 95% ; hs1 16:22 BP 132 / 86 (auto/); Pulse 98; Resp 18; Temp 97.1(O); Pulse Ox 96% ; Pain 4/10; hs1 12:08 Body Mass Index 27.79 (75.75 kg, 165.10 cm) dd6 MDM: 14:13 IV Saline Lock ordered. ef1 14:13 Rib Unilat W/PA Chest Only Ordered. EDMS 14:13 Knee, Complete Ordered. EDMS 14:13 Hip,AP,LAT to include Pelvis Ordered. EDMS 14:14 ECG WITH READING ER PHYS+CARDIAG ordered. EDMS 14:14 Cardiac Injury Profile Ordered. EDMS 14:14 Troponin Ordered. EDMS 14:14 CBC with Diff Ordered. EDMS 14:14 Complete Comphrensive Metabolic Ordered. EDMS 14:30 Special Machine Stitcher/Pulse Ox/q 30 min VS ordered. sd1 14:32 Chest, 1 View Ordered. EDMS 15:14 THYROID PROFILE Ordered. EDMS 15:16 CBC with Diff Reviewed. ef1 15:33 Bisoprolol 2.5 mg PO once ordered. sd1 15:33 Complete Comphrensive Metabolic Reviewed. sd1 15:33 Troponin Reviewed. sd1 15:36 [facility] Payment Agreement was scanned into brite[employer] and attached to record. jp5 15:36 Financial registration complete. jp5 16:09 Complete Comphrensive Metabolic Reviewed. ef1 16:09 THYROID PROFILE Reviewed. ef1 16:09 Cardiac Injury Profile Reviewed. ef1 16:09 Troponin Reviewed. ef1 16:09 Rib Unilat W/PA Chest Only Reviewed. ef1 16:09 Chest, 1 View Reviewed. ef1 09/29 03:22 T-Sheet-- Draft Copy was scanned into britebill and attached to record. hs2 10:33 ECG/EKG was scanned into britebill and attached to record. gb 10:33 Radiology Report was scanned into britebill and attached to record. gb Administered Medications: 09/28 15:46 Drug: Bisoprolol 2.5 mg [bisoprolol fumarate 5 mg tablet (0.5 tabs)] Route: PO; hs1 Signatures: Dispatcher [employer] EDMS Abigail Garcia MD MD sd1 Alysa Oliveira, Reg Reg gb Lyn Adams PA-C PACarlos A ef1 Betty Elliott RN RN hs1 Alejandrina Kumar RN RN floresd Itzel Bright jp5 Saloni Ashley, Reg Reg hs2 The chart was reviewed and I authenticate all verbal orders and agree with the evaluation and treatment provided.Corrections: (The following items were deleted from the chart) 15:14 14:30 THYROID PROFILE+LAB ordered. EDMS EDMS Attachments: 15:36 [facility] Payment Agreement jp5 09/29 03:22 T-Sheet-- Draft Copy hs2 10:33 ECG/EKG gb Chart Complete MTDD
--- NOTE | 2016-09-30 17:48 | EDDOCDS ---
Physician Documentation [facility] Name: Long Aaron Age: 81 yrs Sex: Female : 1935 Arrival Date: 09/28/2016 Time: 12:06 Bed 9 Private MD: Nico Torres Disposition: 09/28/16 16:36 Discharged to Home/Self Care. Impression: Chest pain, unspecified - Musculoskeletal Chest Pain, Chronic atrial fibrillation, Cardiomegaly, Pain in left hip, Osteoarthritis of hip - Left, Pain in right knee - Chondrocalcinosis on x-ray, Other kyphosis, Pleural effusion, not elsewhere classified - vs Pleural Thickening. - Condition is Stable. - Discharge Instructions: Musculoskeletal Pain, Pleural Effusion, Arthritis, Nonspecific, [id number]. - Prescriptions for Tylenol- Codeine #3 300-30 mg Oral Tablet - take 1 tablet by ORAL route every 6 hours As needed MDD: 4 tabs; 10 tablet. - Medication Reconciliation, Local Pharmacy Hours form. - Follow up: Nico Torres; When: 1 - 2 days; Reason: Recheck today's complaints, Continuance of care. Follow up: Emergency Department; Reason: Worsening of conditions. Follow up: Darryl Sena; When: Call to arrange an appointment; Reason: Further diagnostic work-up, Recheck today's complaints, Continuance of care. - Problem is new. - Symptoms have improved. Historical: - Allergies: PENICILLINS; SULFA (SULFONAMIDES); - Home Meds: 1. Symbicort inhalation inhalation as needed 2. simvastatin 20 mg oral tab 2 times per day 3. bisoprolol fumarate 5 mg oral tab 0.5 tab once daily - PMHx: Asthma; Hypercholesterolemia; - PSHx: none; - Social history: No barriers to communication noted, The patient speaks fluent Spanish, Speaks appropriately for age, Smoking status: Patient states was never smoker of tobacco. - Family history: Not pertinent. - : The pt / caregiver states he / she is not on anticoagulants. Home medication list is obtained from the patient, family members. - Exposure Risk Screening:: None identified. Vital Signs: 09/28 12:08 BP 127 / 78; Pulse 120; Resp 18 S; Temp 97.9(T); Pulse Ox 96% on R/A; Weight 75.75 kg / dd6 167 lbs (R); Height 5 ft. 5 in. (165.10 cm) (R); 15:15 BP 128 / 72; Pulse 114 MON; Pulse Ox 96% ; hs1 15:55 BP 135 / 80; Pulse 96 MON; Pulse Ox 93% ; hs1 16:21 BP 124 / 76; Pulse 100 MON; Pulse Ox 95% ; hs1 16:22 BP 132 / 86 (auto/); Pulse 98; Resp 18; Temp 97.1(O); Pulse Ox 96% ; Pain 4/10; hs1 12:08 Body Mass Index 27.79 (75.75 kg, 165.10 cm) dd6 MDM: 14:13 IV Saline Lock ordered. ef1 14:13 Rib Unilat W/PA Chest Only Ordered. EDMS 14:13 Knee, Complete Ordered. EDMS 14:13 Hip,AP,LAT to include Pelvis Ordered. EDMS 14:14 ECG WITH READING ER PHYS+CARDIAG ordered. EDMS 14:14 Cardiac Injury Profile Ordered. EDMS 14:14 Troponin Ordered. EDMS 14:14 CBC with Diff Ordered. EDMS 14:14 Complete Comphrensive Metabolic Ordered. EDMS 14:30 Sander Wooden Pencils/Pulse Ox/q 30 min VS ordered. sd1 14:32 Chest, 1 View Ordered. EDMS 15:14 THYROID PROFILE Ordered. EDMS 15:16 CBC with Diff Reviewed. ef1 15:33 Bisoprolol 2.5 mg PO once ordered. sd1 15:33 Complete Comphrensive Metabolic Reviewed. sd1 15:33 Troponin Reviewed. sd1 15:36 [facility] [place] Agreement was scanned into [employer] and attached to record. jp5 15:36 Financial registration complete. jp5 16:09 Complete Comphrensive Metabolic Reviewed. ef1 16:09 THYROID PROFILE Reviewed. ef1 16:09 Cardiac Injury Profile Reviewed. ef1 16:09 Troponin Reviewed. ef1 16:09 Rib Unilat W/PA Chest Only Reviewed. ef1 16:09 Chest, 1 View Reviewed. ef1 09/29 03:22 T-Sheet-- Draft Copy was scanned into [employer] and attached to record. hs2 10:33 ECG/EKG was scanned into [employer] and attached to record. gb 10:33 Radiology Report was scanned into [employer] and attached to record. gb Administered Medications: 09/28 15:46 Drug: Bisoprolol 2.5 mg [bisoprolol fumarate 5 mg tablet (0.5 tabs)] Route: PO; hs1 Signatures: Dispatcher [employer] EDMS Abigail Garcia MD MD sd1 Alysa Oliveira, Reg Reg gb Lyn Adams PA-C PACarlos A ef1 Betty Elliott RN RN hs1 Alejandrina Kumar RN RN floresd Itzel Bright jp5 Saloni Ashley, Reg Reg hs2 The chart was reviewed and I authenticate all verbal orders and agree with the evaluation and treatment provided.Corrections: (The following items were deleted from the chart) 15:14 14:30 THYROID PROFILE+LAB ordered. EDMS EDMS Attachments: 15:36 [facility] Payment Agreement jp5 09/29 03:22 T-Sheet-- Draft Copy hs2 10:33 ECG/EKG gb Chart Complete MTDD
== END 2016-09-28 16:47 | disposition home or self-care (01) ==
LOC: M ED 12:06
DX: M16.12 Unilateral primary osteoarthritis, left hip (principal); M25.562 Pain in left knee; R07.89 Other chest pain; I51.7 Cardiomegaly; J90 Pleural effusion, not elsewhere classified; I48.91 Unspecified atrial fibrillation; M40.299 Other kyphosis, site unspecified; J45.909 Unspecified asthma, uncomplicated; E78.00 Pure hypercholesterolemia, unspecified; Z79.899 Other long term (current) drug therapy; Z79.51 Long term (current) use of inhaled steroids; Z88.0 Allergy status to penicillin; Z88.2 Allergy status to sulfonamides

== ENCOUNTER → 2016-10-18 | Outpatient (CLI) | payer MEDICARE ==
--- NOTE | 2016-10-18 22:25 | ECHO ---
DATE OF PROCEDURE: 10/18/2016 AGE: 81 GENDER: Female. HEIGHT: 62 inches. WEIGHT: 156 pounds. BODY SURFACE AREA: 1.73 meters squared. Outpatient REFERRING PHYSICIAN: Dr. Nico Torres. INDICATION: Atrial fibrillation. MEASUREMENTS: 2D measurements: RV - 2.9 cm LV - 4.4 cm Septum 1.1 cm Posterior wall 1.1 cm Aortic root 3.6 cm LA - 4.4 cm LVEF 50-55% Doppler measurements: AV - 0.9 meters per second LVOT - 0.64 meters per second LVOT diameter 2.0 cm MV - E 88 Early mitral deceleration time 187 milliseconds E prime 7.4, E/E prime ratio 12.2 PV - 0.6 meters per second Pulmonary artery acceleration time 56 milliseconds RVSP 53 mmHg IVC - 1.7 cm COMMENTS: Underlying atrial fibrillation with somewhat rapid ventricular response with rate varying between 105 and 124 beats per minute. No intraventricular conduction disturbance. Moderately dilated left atrium but normal left ventricular size. Right ventricle was also normal in size with mild to moderately dilated right atrium. LV wall thickness was upper limits of normal. On real-time imaging from the parasternal and projections, wall motion appeared to be slightly globally hypokinetic with a somewhat rapid ventricular response. Moderately severe calcification of her mitral annulus and some degree of the posterior leaflet but adequate leaflet excursion with no posterior systolic buckling. Three equal size aortic cusps with moderately thickened cusp edges but adequate cusp separation. Premature cusp closure in keeping with reduced forward stroke volume. Normal aortic root size. No apparent intracardiac mass or pericardial effusion. Color flow Doppler study taken from the parasternal and apical projection showed mild aortic, and mitral insufficiency with moderate tricuspid insufficiency. There was very mild pulmonic insufficiency. Guided continuous wave Doppler of her aortic valve showed a normal peak systolic velocity against LV outflow tract obstruction. Pulsed and continuous wave Doppler of her LV inflow tract taken from the apical four-chamber projection showed normal diastolic filling velocities against mitral stenosis. There was only early diastolic/passive filling pattern as we would expect with atrial fibrillation. Her early mitral deceleration time was normal. Her current estimated mean left atrial pressure using pulsed and tissue Doppler of her mitral annulus was upper limits of normal. Pulsed and continuous wave Doppler of her pulmonary trunk showed a normal peak systolic velocity against RV outflow tract obstruction. Her pulmonary artery acceleration time was abbreviated in keeping with an elevated pulmonary vascular resistance. Guided continuous wave Doppler of her tricuspid valve allowed our estimation of her right ventricular systolic pressure (at least moderately severely increased). Her inferior vena cava was of normal size with virtually absent respiratory collapse consistent with an elevated central venous pressure of 15-20 mmHg. CONCLUSIONS: 1. Normal left ventricular size and wall motion with slight hypokinesis related to atrial fibrillation with somewhat rapid ventricular response. 2. Moderately dilated left atrium with currently normal estimated mean left atrial pressure. 3. Normal right ventricular size with Doppler evidence of at least moderately severe pulmonary hypertension. 4. Moderately dilated right atrium and IVC size upper limits of normal with absent respiratory collapse consistent with an elevated central venous pressure. 5. Mild aortic valvular sclerosis without stenosis but at least mild insufficiency. 6. Moderately severe mitral annular calcification without inflow tract obstruction and mild insufficiency.
== END ==
LOC: M CARPUL 10:22
PROVIDERS: ATTEND Internal Medicine
DX: I48.91 Unspecified atrial fibrillation (principal)

== ENCOUNTER → 2016-11-08 | Outpatient (CLI) | payer MEDICARE ==
[2016-11-08 07:57] LABS: MEAN CORPUSCULAR HEMOGLOBIN 29.3 pg (27.0-33.0); MEAN CORPUSCULAR HGB CONC 31.7 g/dl (32.0-36.5); MEAN CORPUSCULAR VOLUME 92.2 fl (80.0-96.0); RED CELL DISTRIBUTION WIDTH 13.3 % (11.5-14.5); WHITE BLOOD COUNT 8.2 K/mm3 (4.0-10.0)
[2016-11-08 08:25] LABS: ALBUMIN/GLOBULIN RATIO 0.79 (1.00-1.93); ALKALINE PHOSPHATASE 79 U/L (45-117); ALT/SGPT 22 U/L (12-78); ANION GAP 9 MEQ/L (8-16); AST/SGOT 23 U/L (15-37); BILIRUBIN,TOTAL 0.5 MG/DL (0.2-1.0); BLOOD UREA NITROGEN 13 MG/DL (7-18); CALCIUM LEVEL 8.4 MG/DL (8.8-10.2); CARBON DIOXIDE LEVEL 27 MEQ/L (21-32); CHLORIDE LEVEL 103 MEQ/L (98-107); CHOLESTEROL LEVEL 132 MG/DL (<200); CREATININE FOR GFR 0.93 MG/DL (0.55-1.02); GLOMERULAR FILTRATION RATE > 60.0 (>32); GLUCOSE, FASTING 98 MG/DL (83-110); POTASSIUM SERUM 4.5 MEQ/L (3.5-5.1); SODIUM LEVEL 139 MEQ/L (136-145); TOTAL PROTEIN 6.8 GM/DL (6.4-8.2); TRIGLYCERIDES LEVEL 101 MG/DL (<150)
== END ==
LOC: M LAB 07:22
PROVIDERS: ATTEND Internal Medicine
DX: D50.9 Iron deficiency anemia, unspecified (principal); J45.909 Unspecified asthma, uncomplicated; E78.00 Pure hypercholesterolemia, unspecified

== ENCOUNTER → 2017-05-10 | Outpatient (CLI) | payer MEDICARE ==
[2017-05-10 07:11] LABS: MEAN CORPUSCULAR HEMOGLOBIN 28.2 pg (27.0-33.0); MEAN CORPUSCULAR VOLUME 88.2 fl (80.0-96.0); RED CELL DISTRIBUTION WIDTH 15.3 % (11.5-14.5); WHITE BLOOD COUNT 9.5 K/mm3 (4.0-10.0)
[2017-05-10 07:35] LABS: ALKALINE PHOSPHATASE 74 U/L (45-117); ALT/SGPT 32 U/L (12-78); ANION GAP 8 MEQ/L (8-16); AST/SGOT 20 U/L (15-37); BILIRUBIN,TOTAL 0.6 MG/DL (0.2-1.0); BLOOD UREA NITROGEN 16 MG/DL (7-18); CALCIUM LEVEL 8.6 MG/DL (8.8-10.2); CARBON DIOXIDE LEVEL 28 MEQ/L (21-32); CHLORIDE LEVEL 102 MEQ/L (98-107); CREATININE FOR GFR 0.83 MG/DL (0.55-1.02); GLOMERULAR FILTRATION RATE > 60.0 (>32); GLUCOSE, FASTING 114 MG/DL (83-110); POTASSIUM SERUM 4.7 MEQ/L (3.5-5.1); SODIUM LEVEL 138 MEQ/L (136-145); TOTAL PROTEIN 7.3 GM/DL (6.4-8.2)
== END ==
LOC: M LAB 06:47
PROVIDERS: ATTEND Internal Medicine
DX: D50.9 Iron deficiency anemia, unspecified (principal); E78.00 Pure hypercholesterolemia, unspecified

== ENCOUNTER → 2017-09-19 | Outpatient (CLI) | payer MEDICARE | LOC: M WHC 07:49 | DX: Z12.31 Encounter for screening mammogram for malignant neoplasm of breast (principal) | CPT/HCPCS: 77067 ==

== ENCOUNTER → 2017-10-13 | Outpatient (REF) | payer MEDICARE ==
[2017-10-13 12:29] LABS: HEMATOCRIT 39.9 % (36.0-47.0); HEMOGLOBIN 12.6 g/dl (12.0-16.0); MEAN CORPUSCULAR HEMOGLOBIN 29.4 pg (27.0-33.0); MEAN CORPUSCULAR HGB CONC 31.6 g/dl (32.0-36.5); MEAN CORPUSCULAR VOLUME 93.2 fl (80.0-96.0); PLATELET COUNT, AUTOMATED 276 10^3/uL (150-450); RED BLOOD COUNT 4.28 10^6/uL (4.00-5.40); WHITE BLOOD COUNT 8.3 10^3/uL (4.0-10.0)
[2017-10-13 12:54] LABS: ALBUMIN 2.9 GM/DL (3.2-5.2); ALBUMIN/GLOBULIN RATIO 0.74 (1.00-1.93); ALKALINE PHOSPHATASE 82 U/L (45-117); ALT/SGPT 30 U/L (12-78); ANION GAP 8 MEQ/L (8-16); AST/SGOT 30 U/L (7-37); BILIRUBIN,TOTAL 0.7 MG/DL (0.2-1.0); BLOOD UREA NITROGEN 14 MG/DL (7-18); CALCIUM LEVEL 8.7 MG/DL (8.8-10.2); CARBON DIOXIDE LEVEL 28 MEQ/L (21-32); CHLORIDE LEVEL 102 MEQ/L (98-107); CHOLESTEROL LEVEL 124 MG/DL (<200); CHOLESTEROL RISK RATIO 2.818 (<5); CREATININE FOR GFR 0.81 MG/DL (0.55-1.30); GLOMERULAR FILTRATION RATE > 60.0 (>32); GLUCOSE, FASTING 89 MG/DL (70-100); HDL CHOLESTEROL 44 MG/DL (>40); LDL CHOLESTEROL 59.6 MG/DL (<100); MAGNESIUM LEVEL 2.1 MG/DL (1.8-2.4); NON-HDL-C 80 MG/DL; POTASSIUM SERUM 4.5 MEQ/L (3.5-5.1); SODIUM LEVEL 138 MEQ/L (136-145); TOTAL PROTEIN 6.8 GM/DL (6.4-8.2); TRIGLYCERIDES LEVEL 102 MG/DL (<150)
== END ==
LOC: M SFHCPLAZ 08:04
DX: E78.00 Pure hypercholesterolemia, unspecified (principal); Z86.2 Personal history of diseases of the blood and blood-forming organs and certain disorders involving the immune mechanism; I48.91 Unspecified atrial fibrillation
CPT/HCPCS: 83735

== ENCOUNTER → 2018-04-26 | Outpatient (REF) | payer MEDICARE ==
[2018-04-26 12:00] LABS: HEMATOCRIT 37.4 % (36.0-47.0); HEMOGLOBIN 11.5 g/dl (12.0-15.5); MEAN CORPUSCULAR HEMOGLOBIN 27.8 pg (27.0-33.0); MEAN CORPUSCULAR HGB CONC 30.7 g/dl (32.0-36.5); MEAN CORPUSCULAR VOLUME 90.3 fl (80.0-96.0); PLATELET COUNT, AUTOMATED 283 10^3/uL (150-450); RED BLOOD COUNT 4.14 10^6/uL (4.00-5.40); RED CELL DISTRIBUTION WIDTH 14.3 % (11.5-14.5); WHITE BLOOD COUNT 7.7 10^3/uL (4.0-10.0)
[2018-04-26 12:42] LABS: ANION GAP 7 MEQ/L (8-16); BLOOD UREA NITROGEN 15 MG/DL (7-18); CALCIUM LEVEL 8.7 MG/DL (8.8-10.2); CARBON DIOXIDE LEVEL 29 MEQ/L (21-32); CHLORIDE LEVEL 104 MEQ/L (98-107); CREATININE FOR GFR 0.87 MG/DL (0.55-1.30); GLOMERULAR FILTRATION RATE > 60.0 (>32); GLUCOSE, FASTING 101 MG/DL (70-100); POTASSIUM SERUM 4.7 MEQ/L (3.5-5.1); SODIUM LEVEL 140 MEQ/L (136-145)
[2018-04-26 12:43] LABS: ALBUMIN 2.8 GM/DL (3.2-5.2); ALKALINE PHOSPHATASE 63 U/L (45-117); ALT/SGPT 24 U/L (12-78); AST/SGOT 21 U/L (7-37); BILIRUBIN,TOTAL 0.5 MG/DL (0.2-1.0); TOTAL PROTEIN 6.8 GM/DL (6.4-8.2)
== END ==
LOC: M SFHCPLAZ 08:03
DX: Z86.2 Personal history of diseases of the blood and blood-forming organs and certain disorders involving the immune mechanism (principal); E78.00 Pure hypercholesterolemia, unspecified
CPT/HCPCS: 80053

== ENCOUNTER → 2018-10-23 | Outpatient (REF) | payer MEDICARE ==
[2018-10-23 10:03] LABS: HEMATOCRIT 38.7 % (36.0-47.0); MEAN CORPUSCULAR HEMOGLOBIN 27.8 pg (27.0-33.0); MEAN CORPUSCULAR VOLUME 89.8 fl (80.0-96.0); PLATELET COUNT, AUTOMATED 303 10^3/uL (150-450); RED BLOOD COUNT 4.31 10^6/uL (4.00-5.40); WHITE BLOOD COUNT 12.9 10^3/uL (4.0-10.0)
[2018-10-23 10:27] LABS: ALBUMIN 2.8 GM/DL (3.2-5.2); ALT/SGPT 18 U/L (12-78); BILIRUBIN,TOTAL 0.6 MG/DL (0.2-1.0); BLOOD UREA NITROGEN 14 MG/DL (7-18); CALCIUM LEVEL 8.4 MG/DL (8.8-10.2); CARBON DIOXIDE LEVEL 28 MEQ/L (21-32); CHLORIDE LEVEL 103 MEQ/L (98-107); CHOLESTEROL LEVEL 136 MG/DL (<200); CREATININE FOR GFR 0.76 MG/DL (0.55-1.30); GLOMERULAR FILTRATION RATE > 60.0 (>32); GLUCOSE, FASTING 92 MG/DL (70-100); HDL CHOLESTEROL 40 MG/DL (>40); LDL CHOLESTEROL 73 MG/DL (<100); MAGNESIUM LEVEL 2.1 MG/DL (1.8-2.4); NON-HDL-C 96 MG/DL; POTASSIUM SERUM 4.5 MEQ/L (3.5-5.1); SODIUM LEVEL 138 MEQ/L (136-145); TOTAL PROTEIN 7.1 GM/DL (6.4-8.2); TRIGLYCERIDES LEVEL 117 MG/DL (<150)
== END ==
LOC: M SFHCPLAZ 08:15
PROVIDERS: ATTEND Internal Medicine
DX: Z86.2 Personal history of diseases of the blood and blood-forming organs and certain disorders involving the immune mechanism (principal); E78.00 Pure hypercholesterolemia, unspecified; I48.91 Unspecified atrial fibrillation

== ENCOUNTER → 2019-11-12 | Outpatient (CLI) | payer MEDICARE ==
[2019-11-12 07:02] LABS: HEMATOCRIT 38.8 % (36.0-47.0); HEMOGLOBIN 11.7 g/dl (12.0-15.5); MEAN CORPUSCULAR HEMOGLOBIN 27.2 pg (27.0-33.0); MEAN CORPUSCULAR HGB CONC 30.2 g/dl (32.0-36.5); MEAN CORPUSCULAR VOLUME 90.2 fl (80.0-96.0); PLATELET COUNT, AUTOMATED 280 10^3/uL (150-450); WHITE BLOOD COUNT 6.7 10^3/uL (4.0-10.0)
[2019-11-12 07:32] LABS: ALBUMIN 2.8 GM/DL (3.2-5.2); ALT/SGPT 20 U/L (12-78); BILIRUBIN,TOTAL 0.6 MG/DL (0.2-1.0); BLOOD UREA NITROGEN 16 MG/DL (7-18); CALCIUM LEVEL 8.9 MG/DL (8.8-10.2); CARBON DIOXIDE LEVEL 28 MEQ/L (21-32); CHLORIDE LEVEL 106 MEQ/L (98-107); CHOLESTEROL LEVEL 121 MG/DL (<200); CREATININE FOR GFR 0.88 MG/DL (0.55-1.30); GLOMERULAR FILTRATION RATE > 60.0 (>32); GLUCOSE, FASTING 99 MG/DL (70-100); HDL CHOLESTEROL 42 MG/DL (>40); LDL CHOLESTEROL 53 MG/DL (<100); MAGNESIUM LEVEL 2.2 MG/DL (1.8-2.4); NON-HDL-C 79 MG/DL; POTASSIUM SERUM 4.4 MEQ/L (3.5-5.1); SODIUM LEVEL 139 MEQ/L (136-145); TOTAL PROTEIN 6.9 GM/DL (6.4-8.2); TRIGLYCERIDES LEVEL 132 MG/DL (<150)
[2019-11-12 09:39] LABS: TOTAL 25(OH) VITAMIN D 49.8 NG/ML (30.0-100.0)
== END ==
LOC: M LAB 06:14
PROVIDERS: ATTEND Internal Medicine
DX: E78.00 Pure hypercholesterolemia, unspecified (principal); J45.909 Unspecified asthma, uncomplicated; M85.80 Other specified disorders of bone density and structure, unspecified site

== ENCOUNTER → 2020-02-08 | Outpatient (CLI) | payer MEDICARE ==
--- NOTE | 2020-02-08 17:22 | REP ---
BILATERAL MAMMOGRAM WITH 3D TOMOSYNTHESIS, DIAGNOSTIC MAMMOGRAM RIGHT BREAST, AND RIGHT BREAST ULTRASOUND: HISTORY: Pain and swelling lateral right breast. Family history of breast cancer in maternal aunt. MLO and CC views of right breast performed with 3D tomosynthesis. Comparison made with prior study 09/19/2017. Comparison is also made with other prior studies. Breast parenchyma is moderately heterogeneously dense and appears unchanged. Volpara breast density is C. I see no new mass or architectural distortion. There are coarse benign-type calcifications seen bilaterally. No suspicious clusters of microcalcifications are seen. Real-time sonographic evaluation of the outer right breast performed in the region of pain and swelling. There is heterogeneous fibroglandular tissue with no discrete cystic or solid mass. IMPRESSION: BIRADS 2: BI-RADS/ACR category 2 mammogram. Benign Findings. ACR 2 benign. No evidence of mass or clustered microcalcifications bilaterally. There is no mammographic or sonographic evidence of any suspicious abnormality in the lateral right breast at the site of pain and swelling. Recommend clinical correlation to exclude mastitis. Recommend followup mammogram in 1 year. This mammogram was interpreted with the aid of an FDA-approved computer-aided detection system. The patient states she/he had a clinical breast exam in 11/2019. The patient letter being requested is M2.
== END ==
LOC: M WHC 09:26
PROVIDERS: ATTEND Internal Medicine
DX: N63.10 Unspecified lump in the right breast, unspecified quadrant (principal); Z80.3 Family history of malignant neoplasm of breast; N64.4 Mastodynia; R92.1 Mammographic calcification found on diagnostic imaging of breast
CPT/HCPCS: 76642; 77066; G0279

== ENCOUNTER → 2020-05-19 | Outpatient (CLI) | payer MEDICARE ==
[~2020-05-19] MED LIST changes: -ASPI81TA85 PO; +ASPI81TA86 PO
[2020-05-19 11:42] LABS: HEMATOCRIT 37.4 % (36.0-47.0); HEMOGLOBIN 11.4 g/dl (12.0-15.5); MEAN CORPUSCULAR HEMOGLOBIN 28.4 pg (27.0-33.0); MEAN CORPUSCULAR HGB CONC 30.5 g/dl (32.0-36.5); PLATELET COUNT, AUTOMATED 262 10^3/uL (150-450); RED BLOOD COUNT 4.02 10^6/uL (4.00-5.40); WHITE BLOOD COUNT 9.5 10^3/uL (4.0-10.0)
[2020-05-19 12:05] LABS: ALBUMIN 2.8 GM/DL (3.2-5.2); BILIRUBIN,TOTAL 0.6 MG/DL (0.2-1.0); CALCIUM LEVEL 8.8 MG/DL (8.8-10.2); CREATININE FOR GFR 0.94 MG/DL (0.55-1.30); TOTAL PROTEIN 6.9 GM/DL (6.4-8.2)
== END ==
LOC: M PLALAB 08:07
PROVIDERS: ATTEND Internal Medicine
DX: I48.91 Unspecified atrial fibrillation (principal); E78.00 Pure hypercholesterolemia, unspecified; Z79.899 Other long term (current) drug therapy

== ENCOUNTER → 2020-11-17 | Outpatient (REF) | payer MEDICARE ==
[2020-11-17 10:25] LABS: HEMATOCRIT 40.7 % (36.0-47.0); HEMOGLOBIN 12.2 g/dl (12.0-15.5); MEAN CORPUSCULAR HEMOGLOBIN 29.1 pg (27.0-33.0); MEAN CORPUSCULAR VOLUME 97.1 fl (80.0-96.0); PLATELET COUNT, AUTOMATED 263 10^3/uL (150-450); RED BLOOD COUNT 4.19 10^6/uL (4.00-5.40); WHITE BLOOD COUNT 8.4 10^3/uL (4.0-10.0)
[2020-11-17 10:53] LABS: ALBUMIN 2.8 GM/DL (3.2-5.2); ALT/SGPT 13 U/L (12-78); BILIRUBIN,TOTAL 0.4 MG/DL (0.2-1.0); BLOOD UREA NITROGEN 14 MG/DL (7-18); CALCIUM LEVEL 9.2 MG/DL (8.8-10.2); CARBON DIOXIDE LEVEL 30 MEQ/L (21-32); CHLORIDE LEVEL 108 MEQ/L (98-107); CHOLESTEROL LEVEL 131 MG/DL (<200); CHOLESTEROL RISK RATIO 2.911 (<5); CREATININE FOR GFR 0.78 MG/DL (0.55-1.30); GLOMERULAR FILTRATION RATE > 60.0 (>32); GLUCOSE, FASTING 95 MG/DL (70-100); HDL CHOLESTEROL 45 MG/DL (>40); LDL CHOLESTEROL 61 MG/DL (<100); MAGNESIUM LEVEL 2.1 MG/DL (1.8-2.4); NON-HDL-C 86 MG/DL; POTASSIUM SERUM 4.3 MEQ/L (3.5-5.1); SODIUM LEVEL 141 MEQ/L (136-145); TRIGLYCERIDES LEVEL 126 MG/DL (<150)
== END ==
LOC: M PLALAB 08:15
PROVIDERS: ATTEND Internal Medicine
DX: E78.00 Pure hypercholesterolemia, unspecified (principal); I48.91 Unspecified atrial fibrillation; J45.909 Unspecified asthma, uncomplicated

== ENCOUNTER 2021-01-17 16:06 | Observation (INO) | payer MEDICARE ==
[~2021-01-17] VITALS: Ht 160 cm; Wt 67.2 kg
[2021-01-17] MEDS ORDERED: XARE20TA PO (16:25)
[2021-01-17] MEDS ORDERED: BISO5TAB14 PO (16:25)
[2021-01-17] MEDS ORDERED: SIMV40TA20 PO (16:25)
[2021-01-17] MEDS ORDERED: NEBIVOLOL 5 MG TAB (BYSTOLIC) PO STA (16:54)
[2021-01-17] MEDS ORDERED: bisoproloL fumarate 5 MG TAB PO ONE (17:00)
[2021-01-17 17:25] LABS: INR 3.34; PROTHROMBIN TIME 34.6 SECONDS (12.5-14.3)
[2021-01-17] MEDS ORDERED: LIDOCAINE 2% W/EPINEPHRINE 20ML VIAL **PRES FREE As Ordered ONE (18:24)
[2021-01-17] MEDS ORDERED: LIDOCAINE 2% W/EPINEPHRINE 20ML VIAL **PRES FREE INJ ONE (19:10)
[2021-01-17] MEDS ORDERED: FISH1CAP26 PO (19:11)
[2021-01-17] MEDS ORDERED: SIMV20TA22 PO (19:11)
[2021-01-17] MEDS ORDERED: CALC-190 PO (19:11)
[2021-01-17] MEDS ORDERED: VOLT1GEL15 TOP (19:13)
[2021-01-17] MEDS ORDERED: VITA500064 PO (19:17)
[2021-01-17] MEDS ORDERED: NASA1SPR NARES (19:17)
[2021-01-17] MEDS ORDERED: SYMB16INH INH (19:17)
[2021-01-17] MEDS ORDERED: QC A650T3 PO (19:17)
[2021-01-17] MEDS ORDERED: MELA10CA6 PO (19:17)
[2021-01-17] MEDS ORDERED: MAGN400T2 PO (19:17)
[2021-01-17] MEDS ORDERED: BACITAB PO (19:17)
[2021-01-17] MEDS ORDERED: VENTAER INH (19:17)
[2021-01-17 20:14] LABS: HEMATOCRIT 31.2 % (36.0-47.0); HEMOGLOBIN 9.6 g/dl (12.0-15.5)
[2021-01-17] MEDS ORDERED: ACETAMINOPHEN TAB 650MG DOSE (2X325MG) PO PRN (20:55)
[2021-01-17] MEDS ORDERED: MAALOX 30 ML SUSP *UDC PO PRN (20:55)
[2021-01-17] MEDS ORDERED: MOM 30ML SUSPENSION UDC PO PRN (20:55)
--- NOTE | 2021-01-17 20:56 | HPEPDOC ---
[facility] Medical History & Physical Date of Admission January 17, 2021 Date of Service: January 17, 2021 Primary Care Physician: Nico Torres Attending Physician: WILD MARTINEZ MD History and Physical TIME OF SERVICE: 8:40pm CHIEF COMPLAINT: bleeding gum HISTORY OF PRESENT ILLNESS: This 85 yr old F who is on Xarelto for Afib had a dental extraction 3 weeks ago and has been bleeding off and on; today she couldnt get her gums to stop bleeding so she came to the ER where she was found to have a Hct of 31 (under miscellaneous labs) along w an INR of 3.34. At the time of my visit she had stopped bleeding. REVIEW OF SYSTEMS: negative except as listed in HPI PAST MEDICAL/ SURGICAL HISTORY: [id number], unspecified type of A Fib, DLP, Asthma, Osteopenia, Chronic Anemia, Vitamin B12 deficiency, hx adenomatous polyps of the colon, hearing loss, tonsillectomy, D&C SOCIAL HISTORY: Has never smoked, Independent w ADLs and IADLs, lives w FAMILY HISTORY: Father RA & CAD / several relatives DM ALLERGIES: Please see below. HOME MEDICATIONS: Please see below. PHYSICAL EXAMINATION: Vital Signs Date Time Temp Pulse Resp B/P (MAP) Pulse Ox O2 Delivery O2 Flow Rate FiO2 01/17/21 16:13 98.0 82 22 160/102 (121) 97 Room Air GENERAL APPEARANCE: slim build / well developed / NAD HEENT: EOMI / has dried blood around her mouth and a clot on her tongue CARDIOVASCULAR: RRR/NMRG LUNGS: CTAB on RA MUSCULOSKELETAL: ARRON x 4 INTEGUMENT: ARRON x 4 NEUROLOGICAL: speech not dysarthric PSYCHIATRIC: A&O x 3 able to understand and follow all commands LABORATORY DATA: Prothrombin Time 34.6H, Prothromb Time International Ratio 3.34 01/17/21 17:03: POC Glucose (Misc Panel) 115H, POC Sodium (Misc Panel) 140, POC Potassium (Misc Panel) 4.2, POC Chloride (Misc Panel) 106, POC Total CO2 (Misc Panel) 27.0, POC Blood Urea Nitrogen (Misc Panel 27H, POC Ionized Calcium (Misc Panel) 5.1, POC Creatinine (Misc Panel) 0.8, POC Hematocrit (Misc Panel) 31.0L IMAGING: n/a MICROBIOLOGY: respiratory panel neg ASSESSMENT: is an 85 yr old w A Fib, DLP, Asthma, Osteopenia, Chronic Anemia & Vitamin B12 deficiency who presented w bleeding gums and was found to have a drop in her HCT from 40.7 to 30; she will be admitted for observation pending repeat H/H. PLAN: 1 Bleeding Gums This has resolved Plan: She was evaluated by oral surgeon who recommended liquid diet, to avoid brushing her gums, and holding Xarelto for 3 to 4 days. I will repeat her H/H now and have instructed her to try and see on Tuesday. She has an appointment with (her Dentist) on / if the bleeding reoccurs I will administer Kcentra to reverse the effects of Xarelto 2 A Fib Rate controlled Plan: hold Xarelto, Bisoprolol 3 Chronic Anemia & Vitamin B12 deficiency Plan: trend Hg / Cyanocobalamin 4 DLP Plan: Simvastatin 4 Asthma Plan: Budesonide/Formoterol & Albuterol 5 Osteopenia Plan: Calcium w vitamin D DVT px w SCDs Dispo: home after less than 2 midnights stay Home Medications Scheduled Acetaminophen (Acetaminophen 8 Hour) 650 Mg Tablet.er, 1,300 MG PO Q8H Bisoprolol Fumarate (Bisoprolol Fumarate) 5 Mg Tablet, 7.5 MG PO BID Budesonide/Formoterol (Symbicort 160-4.5 Mcg Inhaler) 6 Gm Hfa.aer.ad, 2 PUFF INH BID Calcium Carbonate/Vitamin D3 (Calcium 1,000 + D3 Caplet) 1 Each Tablet, 1 TAB PO DAILY LUNCH Cyanocobalamin (Vitamin B-12) (Vitamin B-12) 5,000 Mcg Tab.rapdis, 5,000 MCG PO DAILY LUNCH Diclofenac Sodium (Voltaren) 100 Gm Gel..gram., 1 GRAM TOP QHS KNEES L.acidoph/L.bulg/B.bif/S.therm (Bacid Caplet) 1 Each Tablet, 1 TAB PO DAILY LUNCH Magnesium Oxide (Magnesium Oxide) 400 Mg Tablet, 200 MG PO DAILY [place] 3 Polyunsat Fatty Acids (Fish Oil 1,000 mg Softgel) 1,000 Mg Capsule, 1,000 MG PO QPM Rivaroxaban (Xarelto) 20 Mg Tablet, 20 MG PO DAILY LUNCH Simvastatin (Simvastatin) 20 Mg Tablet, 20 MG PO QPM Triamcinolone Acetonide (Nasacort) 10.8 Ml [place], 2 SPRAY NARES BID Scheduled PRN Albuterol Sulfate (Ventolin Hfa) 18 Gm Hfa.aer.ad, 2 PUFF INH Q4-6HP PRN for wheezing Melatonin (Melatonin) 10 Mg Capsule, 10 MG PO QHS PRN for SLEEP Allergies Coded Allergies: Penicillins (Verified Allergy, Unknown, 01/17/21) Sulfa (Sulfonamide Antibiotics) (Verified Allergy, Unknown, 01/17/21) A-FIB/CHADSVASC A-FIB History Current/History of A-Fib/PAF?: Yes Current PO Anticoag Therapy: No Treatment Reason Anticoagulant not given: Current bleeding WILD MARTINEZ MD January 17, 2021 20:56
[2021-01-17] MEDS ORDERED: bisoproloL fumarate 5 MG TAB PO SCH (21:00)
[2021-01-17 22:18] VITALS: BP 150/92
[2021-01-17] MEDS ORDERED: SIMVASTATIN 20 MG TAB PO SCH (23:25)
[2021-01-17] MEDS ORDERED: SYMBICORT 160/4.5MCG INHALER 6GM INH SCH (23:25)
[2021-01-17] MEDS ORDERED: RAMELTEON 8 MG TAB (ROZEREM) PO PRN (23:25)
[2021-01-17] MEDS ORDERED: ALBUTEROL 90 MCG/ACT 8GM HFA INHALER INH PRN (23:25)
[2021-01-17] MEDS ORDERED: PILL CUTTER 1 EACH XX PRN (23:35)
[2021-01-18 06:00] VITALS: BP 128/69
[2021-01-18 06:25] LABS: HEMATOCRIT 30.1 % (36.0-47.0); HEMOGLOBIN 9.2 g/dl (12.0-15.5); MEAN CORPUSCULAR HGB CONC 30.6 g/dl (32.0-36.5); PLATELET COUNT, AUTOMATED 237 10^3/uL (150-450); RED BLOOD COUNT 3.17 10^6/uL (4.00-5.40)
[2021-01-18 08:16] VITALS: BP 128/69
[2021-01-18] MEDS ORDERED: MAGNESIUM OXIDE 400MG TAB (MAG-OX) PO SCH (09:00)
[2021-01-18] MEDS ORDERED: LACTOBACILLUS ACIDOPHILUS CAP (BACID) PO SCH (09:00)
[2021-01-18] MEDS ORDERED: bisoproloL fumarate 5 MG TAB PO SCH (09:00)
--- NOTE | 2021-01-18 10:49 | DS.PDOC ---
Discharge Summary General Date of Admission January 17, 2021 at 16:07 Date of Discharge 01/18/2021 Attending Physician: OCTAVIANO MORSE MD Discharge Summary PROCEDURES PERFORMED DURING STAY: None ADMITTING DIAGNOSES: Persistent gum bleeding After Dental Procedure. DISCHARGE DIAGNOSES: Persistent gum bleeding after dental procedure. Chronic A Fib on xarelto DLP Asthma Osteopenia Chronic Anemia Vitamin B12 deficiency hearing loss COMPLICATIONS/CHIEF COMPLAINT: Surgical Wound Hemorrhage After Dental Procedure. HISTORY OF PRESENT ILLNESS: 85 yr old F who is on Xarelto for Afib had a dental extraction 3 weeks ago and has been bleeding off and on and on the day of presentation she couldnt get her gums to stop bleeding so she came to the ER where she was found to have a Hct of 31 along w an INR of 3.34. Of note, she was evaluated by oral surgeon who recommended liquid diet, to avoid brushing her gums, and holding Xarelto for 3 to 4 days. HOSPITAL COURSE: She was admitted to medicine for observation and she had no further episodes of bleeding. This morning Hgb was stable at 9.2 with a hematocrit of 30.6. Given that her bleeding stopped and her H/H is stable, I will discharge her home where she has a scheduled f/u appointment with tomorrow, 01/19/2021. She has an appointment with (her Dentist) on . She will continue hol ding xarelto for now. DISCHARGE MEDICATIONS: Please see below. ALLERGIES: Please see below. PHYSICAL EXAMINATION ON DISCHARGE: VITAL SIGNS: Please see below. GENERAL APPEARANCE: slim build, well developed, NAD, neatly dressed in street clothing HEENT: NCAT, EOMI, MMM, good dentition, no evidence of bleeding at this time CARDIOVASCULAR: RRR, NMRG LUNGS: CTAB on RA MUSCULOSKELETAL: ARRON x 4 NEUROLOGICAL: speech not dysarthric PSYCHIATRIC: A&O x 3 able to understand and follow all commands LABORATORY DATA: Please see below. IMAGING: None PROGNOSIS: Good ACTIVITY: As tolerated DIET: Liquid diet DISCHARGE PLAN: Home with close PCP and dental follow up DISPOSITION: Home DISCHARGE INSTRUCTIONS: Home with close PCP and dental follow up. Hold xarelto ITEMS TO FOLLOWUP ON ON OUTPATIENT: Resolution of gum bleeding DISCHARGE CONDITION: Stable TIME SPENT ON DISCHARGE: 34 minutes. Vital Signs/I&Os Vital Signs Date Time Temp Pulse Resp B/P (MAP) Pulse Ox O2 Delivery O2 Flow Rate FiO2 01/18/21 08:16 75 128/69 01/18/21 06:00 97.5 17 96 Room Air I&O- Last 24 Hours up to 6 AM 01/18/21 06:00 Intake Total 425 ml Balance 425 ml Laboratory Data Labs 24H Laboratory Tests 2 01/17/21 16:44: Prothrombin Time 34.6H, Prothromb Time International Ratio 3.34 01/17/21 17:03: POC Glucose (Misc Panel) 115H, POC Sodium (Misc Panel) 140, POC Potassium (Misc Panel) 4.2, POC Chloride (Misc Panel) 106, POC Total CO2 (Misc Panel) 27.0, POC Blood Urea Nitrogen (Misc Panel 27H, POC Ionized Calcium (Misc Panel) 5.1, POC Creatinine (Misc Panel) 0.8, POC Hematocrit (Misc Panel) 31.0L 01/18/21 05:37: Nucleated Red Blood Cells % (auto) 0.0 CBC/BMP Laboratory Tests 01/17/21 19:56 01/18/21 05:37 Microbiology Microbiology 01/17/21 Respiratory Virus Panel (PCR) (AMY) - Final, Complete Discharge Medications Scheduled Acetaminophen (Acetaminophen 8 Hour) 650 Mg Tablet.er, 1,300 MG PO Q8H, (Repor [place]) Bisoprolol Fumarate (Bisoprolol Fumarate) 5 Mg Tablet, 7.5 MG PO BID, (Reported) Budesonide/Formoterol (Symbicort 160-4.5 Mcg Inhaler) 6 Gm Hfa.aer.ad, 2 PUFF INH BID, (Reported) Calcium Carbonate/Vitamin D3 (Calcium 1,000 + D3 Caplet) 1 Each Tablet, 1 TAB PO DAILY, (Reported) LUNCH Cyanocobalamin (Vitamin B-12) (Vitamin B-12) 5,000 Mcg Tab.rapdis, 5,000 MCG PO DAILY, (Reported) LUNCH Diclofenac Sodium (Voltaren) 100 Gm Gel..gram., 1 GRAM TOP QHS, (Reported) KNEES L.acidoph/L.bulg/B.bif/S.therm (Bacid Caplet) 1 Each Tablet, 1 TAB PO DAILY, (Reported) LUNCH Magnesium Oxide (Magnesium Oxide) 400 Mg Tablet, 200 MG PO DAILY, (Reported) [place] 3 Polyunsat Fatty Acids (Fish Oil 1,000 mg Softgel) 1,000 Mg Capsule, 1,000 MG PO QPM, (Reported) Simvastatin (Simvastatin) 20 Mg Tablet, 20 MG PO QPM, (Reported) Triamcinolone Acetonide (Nasacort) 10.8 Ml [place], 2 SPRAY NARES BID, (Reported) Scheduled PRN Albuterol Sulfate (Ventolin Hfa) 18 Gm Hfa.aer.ad, 2 PUFF INH Q4-6HP PRN for wheezing, (Reported) Melatonin (Melatonin) 10 Mg Capsule, 10 MG PO QHS PRN for SLEEP, (Reported) Allergies Coded Allergies: Penicillins (Verified Allergy, Unknown, 01/17/21) Sulfa (Sulfonamide Antibiotics) (Verified Allergy, Unknown, 01/17/21) OCTAVIANO MORSE MD January 18, 2021 10:49
[2021-01-18] MEDS ORDERED: CYANOCOBALAMIN 500 MCG TAB PO SCH (12:30)
== END 2021-01-18 11:20 | disposition home or self-care (01) ==
LOC: M ED 16:06 → M ED INP 16:07 → ENRESERV 21:10 → M MSPAV 22:47
PROVIDERS: ADMIT Internal Medicine; ATTEND Internal Medicine
DX: K91.840 Postprocedural hemorrhage of a digestive system organ or structure following a digestive system procedure (principal); I48.20 Chronic atrial fibrillation, unspecified; Z79.01 Long term (current) use of anticoagulants; E78.49 Other hyperlipidemia; M85.89 Other specified disorders of bone density and structure, multiple sites; D51.9 Vitamin B12 deficiency anemia, unspecified; Z79.899 Other long term (current) drug therapy; Z88.0 Allergy status to penicillin; Z88.2 Allergy status to sulfonamides
CPT/HCPCS: 36415; 80047; 85014; 85018; 85027; 85610; 87798; 94640; 96372; 99285; G0378

== ENCOUNTER 2021-02-16 00:23 | Emergency (ER) | payer MEDICARE ==
[~2021-02-16] VITALS: Ht 165.1 cm; Wt 65.9 kg
[~2021-02-16 00:23] MED LIST changes: +BACITAB PO; +BISO5TAB14 PO; +CALC-190 PO; +FISH1CAP26 PO; +MAGN400T2 PO; +MELA10CA6 PO; +NASA1SPR NARES; +QC A650T3 PO; +SIMV20TA22 PO; +SIMV40TA20 PO; +SYMB16INH INH; +VENTAER INH; +VITA500064 PO; +VOLT1GEL15 TOP; +XARE20TA PO
[2021-02-16] MEDS ORDERED: OXYMETAZOLINE 0.05% NASAL SPRAY (AFRIN) ONE (00:40)
[2021-02-16] MEDS ORDERED: XARE20TA PO (01:04)
[2021-02-16] MEDS ORDERED: SILVER NITRATE APPLICATOR TOP ONE (02:25)
[2021-02-16 04:31] VITALS: BP 123/83
== END 2021-02-16 04:45 | disposition home or self-care (01) ==
LOC: M ED 00:23
DX: R04.0 Epistaxis (principal); I48.91 Unspecified atrial fibrillation; Z79.899 Other long term (current) drug therapy; Z88.0 Allergy status to penicillin; Z88.2 Allergy status to sulfonamides

== ENCOUNTER 2021-03-27 08:12 | Emergency (ER) | payer MEDICARE ==
[~2021-03-27] VITALS: Ht 165.1 cm; Wt 65.9 kg
[2021-03-27 08:12] VITALS: BP 168/94
[2021-03-27] MEDS ORDERED: SYMB16INH (08:19)
[2021-03-27] MEDS ORDERED: SIMV40TA20 (08:19)
[2021-03-27 10:44] LABS: HEMOGLOBIN 9.8 g/dl (12.0-15.5); MEAN CORPUSCULAR HEMOGLOBIN 24.6 pg (27.0-33.0); MEAN CORPUSCULAR HGB CONC 28.8 g/dl (32.0-36.5); MEAN CORPUSCULAR VOLUME 85.2 fl (80.0-96.0); PLATELET COUNT, AUTOMATED 300 10^3/uL (150-450); RED BLOOD COUNT 3.99 10^6/uL (4.00-5.40); WHITE BLOOD COUNT 11.6 10^3/uL (4.0-10.0)
[2021-03-27] MEDS ORDERED: SILVER NITRATE APPLICATOR TOP ONE (10:45)
[2021-03-27 10:58] LABS: INR 1.24; PROTHROMBIN TIME 15.9 SECONDS (12.5-14.3)
== END 2021-03-27 11:52 | disposition home or self-care (01) ==
LOC: M ED 08:12
DX: R04.0 Epistaxis (principal); I48.91 Unspecified atrial fibrillation; I10 Essential (primary) hypertension; E78.5 Hyperlipidemia, unspecified; Z79.01 Long term (current) use of anticoagulants; Z79.899 Other long term (current) drug therapy; Z88.0 Allergy status to penicillin; Z88.2 Allergy status to sulfonamides

== ENCOUNTER → 2021-05-21 | Outpatient (CLI) | payer MEDICARE ==
[~2021-05-21] MED LIST changes: +SIMV40TA20; +SYMB16INH
[2021-05-21 11:19] LABS: ALBUMIN 2.7 GM/DL (3.2-5.2); ALT/SGPT 18 U/L (12-78); BILIRUBIN,TOTAL 0.6 MG/DL (0.2-1.0); BLOOD UREA NITROGEN 20 MG/DL (7-18); CALCIUM LEVEL 8.6 MG/DL (8.8-10.2); CARBON DIOXIDE LEVEL 25 MEQ/L (21-32); CHLORIDE LEVEL 105 MEQ/L (98-107); CREATININE FOR GFR 0.81 MG/DL (0.55-1.30); GLOMERULAR FILTRATION RATE > 60.0 (>32); GLUCOSE, FASTING 100 MG/DL (70-100); POTASSIUM SERUM 4.1 MEQ/L (3.5-5.1); SODIUM LEVEL 140 MEQ/L (136-145); TOTAL PROTEIN 6.8 GM/DL (6.4-8.2)
[2021-05-21 11:42] LABS: HEPATITIS C VIRUS ABY INDEX 0.1 INDEX (<0.8)
[2021-05-21 11:46] LABS: BASO # 0.1 10^3/uL (0.0-0.2); EOS # 0.4 10^3/uL (0.0-0.5); EOS % 5.7 % (0.0-3.0); HEMATOCRIT 36.1 % (36.0-47.0); HEMOGLOBIN 10.1 g/dl (12.0-15.5); LYMPH # 1.7 10^3/uL (1.5-5.0); LYMPH % 27.8 % (24.0-44.0); MEAN CORPUSCULAR HEMOGLOBIN 23.5 pg (27.0-33.0); MONO # 0.3 10^3/uL (0.0-0.8); MONO % 5.2 % (2.0-8.0); NEUTROPHILS # 3.7 10^3/uL (1.5-8.5); PLATELET COUNT, AUTOMATED 257 10^3/uL (150-450); WHITE BLOOD COUNT 6.2 10^3/uL (4.0-10.0)
== END ==
LOC: M PLALAB 08:16
PROVIDERS: ATTEND Internal Medicine
DX: E78.00 Pure hypercholesterolemia, unspecified (principal); Z86.2 Personal history of diseases of the blood and blood-forming organs and certain disorders involving the immune mechanism; Z11.59 Encounter for screening for other viral diseases

== ENCOUNTER 2021-07-27 08:33 | Inpatient (IN) | payer MEDICARE ==
[~2021-07-27] VITALS: Ht 165.1 cm; Wt 66.0 kg
[~2021-07-27 08:33] MED LIST changes: -SYMB16INH
--- OUTSIDE RECORDS SUMMARY | 2021-07-27 09:23 | CCD ---
Author Author [facility] Organization [facility] Address Unknown Phone Unavailable Care Team Providers Care Truck Striker Name Role Phone Nico Torres Unavailable PROBLEMS Type Condition ICD9-CM Code [id number] Code Onset Dates Condition S tatus W/U Status Risk SNOMED Code Notes Problem Gastroesophageal reflux K21.9 Active confirmed 919302091 On Prevacid in the past. It is not on her list today. Patient has controlled heartburn. Last endoscopy done in December 2015 showed 1 angiodysplastic lesion which was not bleeding, and a hiatal hernia. Problem Osteopenia M85.80 Active confirmed 996592777 Osteopenia by DEXA 2001. Repeat DEXA revealed mild osteopenia in 07/13, 01/2013, and was close to normal in December 2017. Vitamin D level was 50 in November 2019. Problem Vitamin B12 deficiency E53.8 Active confirmed 682878076 She was on parenteral B12 therapy. This was switched to oral therapy in December 2014. A repeat vitamin B12 level was greater than 2000 in April 2016. Problem Hx of adenomatous polyp of colon Z86.010 Active confirmed 998361690 She had an adenomatous polyp on colonosc opy in December 2015. Problem Atrial fibrillation, unspecified type I48.91 Ac tive confirmed 09853434 She has atrial fibrillation diagnosed in the emergency department on 09/28/2016, duration unknown, but not evident on EKG on 04/05/2016. She was started on Xarelto therapy in late September 2016 and her bisoprolol was increased to 5 mg daily. Her echocardiogram in August 2017 demonstrated a left atrial diameter 4.4 cm with normal left ventricular function. Thyroid function testing was normal in April 2016. She has had gradual escalation of her bisoprolol therapy due to suboptimally controlled heart rate and she is currently on 7.5 mg twice daily. Heart rates are monitored at home using her home blood pressure cuff also. Problem History of microcytic hypochromic anemia Z86.2 Active confirmed [id number] She had developed a very significant justin rocytic anemia in November 2015. She had fairly unrevealing endoscopies in December 2015. She had a tubular adenoma on colonoscopy, and angiodysplasia without bleeding as well as a hiatal hernia, on upper endoscopy. She was transfused on December 04, 2015 with 3 units of packed cells, and was on iron replacement therapy from November through early April 2016. Follow-up CBCs had not demonstrated a recurrence of her anemia, but as of May 2021 her MCV is dropping and her hemoglobin is in the 10 range. I therefore had her restart iron 3 times a week. Problem Lichen sclerosus L90.0 Active confirmed 256 20551 Problem Other intermediate designer (current) drug therapy Z79.899 A ctive confirmed [id number] Problem Lichen sclerosus et atrophicus L90.0 Active confir med 31350499 Problem Asthma J45.909 Active confirmed [id number] Jackson pruett has basically controlled asthma with some dyspnea on exertion. Nocturnal oximetr was OK as of November 2019. We will maintain Symbicort therapy, with Ventolin as needed. She should continue to take Symbicort twice daily. Problem Sensorineural hearing loss (SNHL) of both ears H90 .3 Active confirmed 128225855 She wears hearing ai ds. Problem Hypercholesterolemia E78.00 Active confirmed 02752381 On Zocor, dose increased 02/11. Lipids optimal in November 2020. Problem Arthritis of knee M17.10 Active confirmed 37 [id number] She saw an orthopedist regarding arthritis of her knees and had a left knee cortisone injection in Fall 2017. She uses topical Voltaren. She is as ongoing knee arthritis. I gave her a course of prednisone for about a month in August 2019 with benefit. Problem Lump of right breast N63.10 Active confirmed [id number] ALLERGIES Allergen (clinical drug ingredient) Drug/Non Drug Allergy do cumented on EMR Reaction Allergy Type Onset Date Status Sulfasalazine Sulfa Antibiotics Unknown Drug Allergy Ac tive Erythrocin Unknown Drug Allergy Active Penicillin (For Allergies Use Only) Unknown Drug Allerg y Active ENCOUNTERS from 1933 to 2021-06-02 Encounter Location Date Provider Diagnosis [facility] [address] [phone] [place] [address] 22 May, 2021 Nico Torres Atrial fibrillation, unspeci fied type I48.91 ; Hypercholesterolemia E78.00 ; Asthma J45.909 ; Osteopenia M85.80 ; History of microcytic hypochromic anemia Z86.2 ; Vitamin B12 deficiency E53.8 ; Gastroesophageal reflux K21.9 ; Hx of adenomatous polyp of colon Z86.010 ; Sensorineural hearing loss (SNHL) of both ears H90.3 ; Arthritis of knee M17.10 and Other intermediate designer (current) drug therapy Z79.899 IMMUNIZATIONS Vaccine Route Administration Date Status Influenza Pharmacy Given Unknown Jun 29, 2018 Adminis tered Influenza Pharmacy Given Unknown Jul 06, 2019 Adminis tered Influenza Pharmacy Given Unknown Jul 02, 2020 Adminis tered COVID-19 dose #1 given elsewhere Unspecified Unknown Sep 30, 2020 Administered Depo-Medrol 80mg Methylprednisolone Acetate IM Intramuscular Dec Administered Rocephin 1gm Ceftriaxone IM Intramuscular December 30, 2017 Admini stered Zoster 50mcg/0.5mL Shingrix Unknown Aug 07, 2018 Admi nistered Influenza 6mo & up Fluzone Unknown Jun 14, 2011 Admin istered COVID-19 dose #2 given elsewhere Unspecified Unknown Oct 28, 2020 Administered Influenza (High Dose 65 & up) Unknown Jun 14, 2017 Ad ministered Influenza (High Dose 65 & up) Unknown May 21, 2016 Ad ministered Zoster 0.65mL Zostavax Unknown March 15, 2011 Administe red Pneumococcal Adult 0.5mL Pneumovax 23 Unknown March 14 999 Administered TDAP 0.5mL (Boostrix) IM Intramuscular November 15, 2016 Administe red Pneumococcal 0.5mL Prevnar 13 IM Intramuscular December 24, 2015 A dministered TD Adult 0.5mL Tetanus Unknown November 07, 2002 Administe red Influenza 6mo & up Fluzone Unknown Jun 22, 2012 Admin istered SOCIAL HISTORY Tobacco Use: Social History Observation Description Date Details (start date - stop date) never smoker Sex Assigned At : Social History Observation Description Sex Assigned At Unknown Audit Question Answer Notes Total Score: 3 Interpretation: Alcohol Education Domestic Violence: Question Answer Notes Status: Sexual Hx: Question Answer Notes Had sex in the last 12 months (vaginal, oral, or anal)? No Have you ever had an STD? No Drug and Alcohol Question Answer Notes Total Score: 0 Interpretation: No problems reported Alcohol Screening: Question Answer Notes Did you have a drink containing alcohol in the past year? Ye s Points 4 Interpretation Positive How often did you have six or more drinks on one occas ion in the past year? Never (0 points) How many drinks did you have on a typica l day when you were drinking in the past year? 1 or 2 (0 points) How often did you have a drink containing alcohol in t he past year? Four or more times a week (4 points) BMI Care Goal Follow-Up Question Answer Notes Above Normal BMI Follow-Up Dietary management educatio n, guidance, and counseling Tobacco Use: Question Answer Notes Are you a: never smoker exposure to second h and smoke REASON FOR REFERRAL No Information VITAL SIGNS Weight 149 lbs May, Weight-kg 67.59 kg May, Height 66 in May, BMI 24.05 kg/m2 May, Heart Rate 116 /min May, Respiratory Rate 22 /min May, Temperature 97.3 degrees Fahrenheit May, Oximetry 96 May, Blood pressure systolic 128 mm Hg May, Blood pressure diastolic 58 mm Hg May, MEDICATIONS Medication SIG (Take, Route, Frequency, Duration) Notes Start Da te End Date Status Probiotic - as directed Orally Activ e Betamethasone Dipropionate 0.05 % 1 application Externally twice week ly Active Symbicort 160-4.5 MCG/ACT 2 puffs Inhalation Twice a day for 90 day(s) Dec, Active Voltaren 1 % 2GM to both knees Transderma l Every 6 hours as needed MDD-16GM for 90 day(s) Jul, Active Magnesium Oxide 400 MG 1/2 capsule as needed Orally Once a day Not-Taking Fish Oil 1000 mg 1 capsule Orally Once a day Not-Taking Proctosol HC 2.5 % 1 application to affected ar ea Rectal Twice a day as needed for hemorrhoid discomfort for 30 day(s) Apr, Active Nasacort Allergy 24HR 55 MCG/ACT 2 puffs in each nostril Nasally On a day Active Ferrous Sulfate 325 (65 Fe) MG 1 tablet Orally Once a day, Tue/Tue/Tue for 30 day(s) May, Active Xarelto 20MG 1 tablet with food Orally Once a day Active Cyanocobalamin 1000 MCG 1 tablet Orally Once a day for 30 day(s) Dec, Active Metamucil 28.3 % as directed Orally twice a day Active Calcium + D 600-200 MG-UNIT 1 tablet Orally Once a day Active Tylenol 325 MG 2 tabs Orally as neeeded Active Ventolin HFA 108 (90 Base) MCG/ACT 2 puffs as needed I nhalation every 6 hrs for 90 days Dec, Active Simvastatin 40 MG TAKE 1 TABLET EVERY EVENING for 90 Active Bisoprolol Fumarate 5MG 1.5 tablets Orally twice daily for 90 days Active PROCEDURES No Information RESULTS No Results REASON FOR VISIT 6 month follow up with labs to review MEDICAL (GENERAL) HISTORY Type Description Date Medical History Atrial fibrillation, unspecified type Medical History Hypercholesterolemia Medical History Asthma Medical History Osteopenia Medical History History of microcytic hypochromic anemia Medical History Vitamin B12 deficiency Medical History Gastroesophageal reflux Medical History Hx of adenomatous polyp of colon Medical History Sensorineural hearing loss (SNHL) of bot h ears Surgical History tonsillectomy as child Surgical History D & C in past Hospitalization History Asthma attacks x2 Hospitalization History Surgical related Goals Section No Information Health Concerns No Information MEDICAL EQUIPMENT No Information MENTAL STATUS No Information FUNCTIONAL STATUS No Information ASSESSMENTS Encounter Date Diagnosis Assessment Notes Treatment Notes Treatm ent Clinical Notes May, Atrial fibrillation, unspecified type (I CD-10 - I48.91) She has atrial fibrillation diagnosed in the emergency department on 09/28/2016, duration unknown, but not evident on EKG on 04/05/2016. She was started on Xarelto therapy in late September 2016 and her bisoprolol was increased to 5 mg daily. Her echocardiogram in August 2017 demonstrated a left atrial diameter 4.4 cm with normal left ventricular function. Thyroid function testing was normal in April 2016. She has had gradual escalation of her bisoprolol therapy due to suboptimally controlled heart rate and she is currently on 7.5 mg twice daily. Heart rates are monitored at home using her home blood pressure cuff also. May, Hypercholesterolemia (ICD-10 - E78.00) O n Zocor, dose increased 02/11. Lipids optimal in November 2020. May, Asthma (ICD-10 - J45.909) She has basica lly controlled asthma with some dyspnea on exertion. Nocturnal oximetr was OK as of November 2019. We will maintain Symbicort therapy, with Ventolin as needed. She should continue to take Symbicort twice daily. May, Osteopenia (ICD-10 - M85.80) Osteopenia by DEXA 2001. Repeat DEXA revealed mild osteopenia in 07/13, 01/2013, and was close to normal in December 2017. Vitamin D level was 50 in November 2019. May, History of microcytic hypochromic anemia (ICD-10 - Z86.2) She had developed a very significant microcytic anemia in November 2015. She had fairly unrevealing endoscopies in December 2015. She had a tubular adenoma on colonoscopy, and angiodysplasia without bleeding as well as a hiatal hernia, on upper endoscopy. She was transfused on December 04, 2015 with 3 units of packed cells, and was on iron replacement therapy from November through early April 2016. Follow-up CBCs had not demonstrated a recurrence of her anemia, but as of May 2021 her MCV is dropping and her hemoglobin is in the 10 range. I therefore had her restart iron 3 times a week. May, Vitamin B12 deficiency (ICD-10 - E53.8) She was on parenteral B12 therapy. This was switched to oral therapy in December 2014. A repeat vitamin B12 level was greater than 2000 in April 2016. May, Gastroesophageal reflux (ICD-10 - K21.9) On Prevacid in the past. It is not on her list today. Patient has controlled heartburn. Last endoscopy done in December 2015 showed 1 angiodysplastic lesion which was not bleeding, and a hiatal hernia. May, Hx of adenomatous polyp of colon (ICD-10 - Z86.010) She had an adenomatous polyp on colonoscopy in December 2015. May, Sensorineural hearing loss (SNHL) of bot h ears (ICD-10 - H90.3) She wears hearing aids. May, Arthritis of knee (ICD-10 - M17.10) She saw an orthopedist regarding arthritis of her knees and had a left knee cortisone injection in Fall 2017. She uses topical Voltaren. She is as ongoing knee arthritis. I gave her a course of prednisone for about a month in August 2019 with benefit. May, Other intermediate designer (current) drug therapy (ICD-10 - Z79.899) PLAN OF TREATMENT Medication Medication Name Sig Start Date Stop Date Ferrous Sulfate 325 (65 Fe) MG 1 tablet Orally Once a day, Mon/Wed/Fri for 30 day(s) May, Simvastatin 40 MG TAKE 1 TABLET EVERY EVENING for 90 Future Test Test Name Order Date Comprehensive Metabolic Profile (CMP) [id number] LIPID PANEL (CARDIAC RISK) [id number] CBC with Differential [id number] TSH [id number] Next Appt Details 6 Months Reason: Provider Name:Nico Torres, 2021-11-25 10 :00:00 AM, [address], , [place], [address], Insurance Providers Payer Name Payer Address Payer Phone Insured Name Patient Relati onship to Insured Coverage Start Date Coverage End Date [facility] OPTIONS [facility] CLAIM DIV [address] [facility] [phone] CRISTINA ERNST MEDICARE Part A and B [address] [facility] [id number] CRISTINA ERNST
--- OUTSIDE RECORDS SUMMARY | 2021-07-27 09:23 | CCD ---
Author Author [facility] Organization [facility] Address Unknown Phone Unavailable Care Team Providers Care Manager Relocation Name Role Phone Nico Torres Unavailable PROBLEMS Type Condition ICD9-CM Code [id number] Code Onset Dates Condition S tatus W/U Status Risk SNOMED Code Notes Problem Gastroesophageal reflux K21.9 Active confirmed 508135020 On Prevacid in the past. It is not on her list today. Patient has controlled heartburn. Last endoscopy done in December 2015 showed 1 angiodysplastic lesion which was not bleeding, and a hiatal hernia. Problem Osteopenia M85.80 Active confirmed 651815773 Osteopenia by DEXA 2001. Repeat DEXA revealed mild osteopenia in 07/13, 01/2013, and was close to normal in December 2017. Vitamin D level was 50 in November 2019. Problem Vitamin B12 deficiency E53.8 Active confirmed 716336894 She was on parenteral B12 therapy. This was switched to oral therapy in December 2014. A repeat vitamin B12 level was greater than 2000 in April 2016. Problem Hx of adenomatous polyp of colon Z86.010 Active confirmed 948482743 She had an adenomatous polyp on colonosc opy in December 2015. Problem Atrial fibrillation, unspecified type I48.91 Ac tive confirmed 80153772 She has atrial fibrillation diagnosed in the [...] of microcytic hypochromic anemia Z86.2 Active confirmed 891522119 She had developed a very significant justin [...] November through early April 2016. Follow-up CBCs have not demonstrated a recurrence of her anemia, most recently checked in November 2020. 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 Nocturnal oximetr was OK as of November 2019. We will maintain Symbicort therapy, with Ventolin as needed. she should take Symbicort twice daily--she has not been doing so. Problem Sensorineural hearing loss (SNHL) of both ears H90 .3 Active confirmed 200334342 She wears hearing ai ds. Problem Hypercholesterolemia E78.00 Active confirmed 32968900 On Zocor, dose increased 02/11. Lipids optimal in November 2020. Problem Arthritis of knee M17.10 Active confirmed 37 0231441 She saw an orthopedist regarding arthritis of her knees and had a left knee cortisone injection in Fall 2017. She uses topical Voltaren. She is as ongoing knee arthritis. I gave her a course of prednisone for about a month in August 2019 with benefit. Problem Lump of right breast N63.10 Active confirmed [id number] ALLERGIES Allergen (clinical drug ingredient) Drug/Non Drug Allergy do cumented on EMR Reaction Allergy Type Onset Date Status Erythrocin Unknown Drug Allergy Active Sulfa (for allergy use only) Unknown Drug Allergy Active Penicillin (For Allergies Use Only) Unknown Drug Allerg y Active ENCOUNTERS from 1933 to 2021-05-06 Encounter Location Date Provider Diagnosis [facility] [address] [facility] [phone] [place] [address] 31 Apr, 2021 Nico Torres IMMUNIZATIONS Vaccine Route Administration Date Status Influenza Pharmacy Given Unknown Jul 02, 2020 Adminis tered Depo-Medrol 80mg Methylprednisolone Acetate IM Intramuscular Dec Administered Rocephin 1gm Ceftriaxone IM Intramuscular December 30, 2017 Admini stered COVID-19 dose #1 given elsewhere Unspecified Unknown Sep 30, 2020 Administered Zoster 50mcg/0.5mL Shingrix Unknown Aug 07, 2018 Admi nistered Influenza Pharmacy Given Unknown Jun 29, 2018 Adminis tered Influenza Pharmacy Given Unknown Jul 06, 2019 Adminis tered Influenza 6mo & up Fluzone Unknown Jun [...] REASON FOR REFERRAL No Information VITAL SIGNS No information MEDICATIONS Medication SIG (Take, Route, Frequency, Duration) Notes Start Da te End Date Status Voltaren 1 % 2GM to both knees Transderma l Every 6 hours as needed MDD-16GM for 90 day(s) Jul, Active Betamethasone Dipropionate 0.05 % 1 application Externally twice week ly Active Fish Oil 1000 mg 1 capsule Orally Once a day Active Symbicort 160-4.5 MCG/ACT 2 puffs Inhalation Twice a day for 90 day(s) Dec, Active Cyanocobalamin 1000 MCG 1 tablet Orally Once a day for 30 day(s) Dec, Active Calcium + D 600-200 MG-UNIT 1 tablet Orally Once a day Active Proctosol HC 2.5 % 1 application to affected ar ea Rectal Twice a day as needed for hemorrhoid discomfort for 30 day(s) Apr, Active Bisoprolol Fumarate 5MG 1.5 tablets Orally twice daily for 90 days Active Magnesium Oxide 400 MG 1/2 capsule as needed Orally Once a day Active Nasacort Allergy 24HR 55 MCG/ACT 2 puffs in each nostril Nasally On a day Active Probiotic - as directed Orally Activ e Cipro 500 MG 1 tablet Orally every 12 hrs for 3 days r, 2020 Active Xarelto 20MG 1 tablet with food Orally Once a day Active Zocor 40 MG 1 tablet in the evening Orally Once a day for 90 Active Ventolin HFA 108 (90 Base) MCG/ACT 2 puffs as needed I nhalation every 6 hrs for 90 days Dec, Active PROCEDURES No Information RESULTS No Results REASON FOR VISIT extra dose of Xaralto today MEDICAL (GENERAL) HISTORY Type Description Date Medical [...] No Information FUNCTIONAL STATUS No Information ASSESSMENTS No Information PLAN OF TREATMENT Next Appt Details Provider Name:Nico Torres, 2021-05-27 10 :00:00 AM, [address] [facility], , [place], [address], Insurance Providers Payer Name Payer Address Payer Phone Insured Name Patient Relati onship to Insured Coverage Start Date Coverage End Date [employer] OPTIONS [facility] CLAIM DIV [address] [facility] [id number] CRISTINA ERNST MEDICARE Part A and B [address] [facility] [id number] [phone] CRISTINA ERNST self
--- OUTSIDE RECORDS SUMMARY | 2021-07-27 09:23 | CCD ---
Author Author [facility] Organization [facility] Address Unknown Phone Unavailable Support Name Relationship Address Phone LONG ERNST Next Of Kin [id number] [place] [address] UE Next Of Kin Unknown Unavailable ZELDA ERNST Next Of Kin [address] [place] [address] JAS ERNSTI Next Of Kin [id number] [place] [address] RETIRED Next Of Kin Unknown RE Next Of Kin Unknown Unavailable VENITANAVJOTCoyLUCHO Next Of Kin [phone] [place] [address] Lucho Ernst/Long ECON [address] [place] [address] Unavailable Zelda Ernst ECON [id number] [place] [address] Unavailable Re-disclosure Warning The records that you are about to access may contain information from federally-assisted alcohol or drug abuse programs. If such information is present, then the following federally mandated warning applies: This information has been disclosed to you from records protected by federal confidentiality rules (42 CFR part 2). The federal rules prohibit you from making any further disclosure of this information unless further disclosure is expressly permitted by the written consent of the person to whom it pertains or as otherwise permitted by 42 CFR part 2. A general authorization for the release of medical or other information is NOT sufficient for this purpose. The Federal rules restrict any use of the information to criminally investigate or prosecute any alcohol or drug abuse patient.The records that you are about to access may contain highly sensitive health information, the redisclosure of which is protected by Article 27-F of the [facility] Public Health law. If you continue you may have access to information: Regarding HIV / AIDS; Provided by facilities licensed or operated by the [facility] Office of Mental Health; or Provided by the [facility] Office for People With Developmental Disabilities. If such information is present, then the following [facility] mandated warning applies: This information has been disclosed to you from confidential records which are protected by state law. State law prohibits you from making any further disclosure of this information without the specific written consent of the person to whom it pertains, or as otherwise permitted by law. Any unauthorized further disclosure in violation of state law may result in a fine or prison sentence or both. A general authorization for the release of medical or other information is NOT sufficient authorization for further disc losure. Family History Family Member Name Family Member Gender Family Member Status Date o f Status Description Data Source(s) Unknown Female Problem MEDENT ([facility]) Encounters Encounter Providers Location Date Indications Data Source(s ) Outpatient [address] [facility] [id number] 05/27/2021 12:00:00 AM EDT [facility] Unknown [address] [facility] [id number] 05/05/2021 12:00:00 AM EDT eCW1 ([facility] Unknown [address] [facility] [id number] 02/24/2021 12:00:00 AM EDT eCW1 ([facility] Outpatient [address] [facility] [id number] 02/24/2021 12:00:00 AM EDT eCW1 ([facility]) Outpatient [address] [facility] [id number] 11/24/2020 12:00:00 AM EDT eCW1 ([facility]) Unknown [address] [facility] [id number] 11/07/2020 12:00:00 AM EST eCW1 ([facility]) Unknown [address] [facility] [id number] 09/02/2020 12:00:00 AM EST eCW1 ([facility]) (WC 20ESGYN) WCenter 20 Min Est Stepdown Nurse [address] [place] [address] 06/24/2020 12:00:00 AM EDT eCW1 ([facility]) Immunizations Vaccine Date Status Description Data Source(s) COVID-19 VACCINE Moderna 07/17/2021 12:00:00 AM EST completed [facility] Vaccine Series Complete: YESThis Data wa s Submitted to [facility] Via [employer]. COVID-19 dose #2 given elsewhere Unspecified 10/28/2020 09:2 1:00 AM EST completed eCW1 ([facility]) COVID-19 dose #2 given elsewhere Unspecified 10/28/2020 09:2 1:00 AM EST completed eCW1 ([facility]) COVID-19 dose #2 given elsewhere Unspecified 10/28/2020 09:2 1:00 AM EST completed eCW1 ([facility]) COVID-19 dose #2 given elsewhere Unspecified 10/28/2020 09:2 1:00 AM EST completed eCW1 ([facility]) COVID-19 dose #2 given elsewhere Unspecified 10/28/2020 09:2 1:00 AM EST completed eCW1 ([facility]) COVID-19 VACCINE, MRNA-1273, LNP-S (MODERNA)/PF 10/28/2020 1 2:00:00 AM EST completed [facility] COVID-19 dose #1 given elsewhere Unspecified 09/30/2020 09:2 0:00 AM EST completed eCW1 ([facility]) COVID-19 dose #1 given elsewhere Unspecified 09/30/2020 09:2 0:00 AM EST completed eCW1 ([facility]) COVID-19 dose #1 given elsewhere Unspecified 09/30/2020 09:2 0:00 AM EST completed eCW1 ([facility]) COVID-19 dose #1 given elsewhere Unspecified 09/30/2020 09:2 0:00 AM EST completed eCW1 ([facility]) COVID-19 dose #1 given elsewhere Unspecified 09/30/2020 09:2 0:00 AM EST completed eCW1 ([facility]) COVID-19 VACCINE Moderna 09/30/2020 12:00:00 AM EST completed [facility] Vaccine Series Complete: NOThis Data was Submitted to [facility] Via [employer]. COVID-19 VACCINE, MRNA-1273, LNP-S (MODERNA)/PF 09/30/2020 1 2:00:00 AM EST completed [facility] IIV3. This is one of two codes replacing CVX 15, which is being retired. 07/02/2020 06:20:00 AM EDT completed eCW1 ([facility]) IIV3. This is one of two codes replacing CVX 15, which is being retired. 07/02/2020 06:20:00 AM EDT completed eCW1 ([facility]) IIV3. This is one of two codes replacing CVX 15, which is being retired. 07/02/2020 06:20:00 AM EDT completed eCW1 ([facility]) IIV3. This is one of two codes replacing CVX 15, which is being retired. 07/02/2020 06:20:00 AM EDT completed eCW1 ([facility]) IIV3. This is one of two codes replacing CVX 15, which is being retired. 07/02/2020 06:20:00 AM EDT completed eCW1 ([facility]) Medications Medication Brand Name Start Date Product Form Dose Route Admi nistrative Instructions Pharmacy Instructions Status Indications Reaction Description Data Source(s) 100 mcg/0.5 mL 07/17/2021 12:00:00 AM EST suspension 0 INJECT DIRECTED PER STANDING ORDER BOOSTER INJECT DIRECTED PER STANDING ORDER BOOSTER SOLD: 07/17/2021 [facility] 240 mcg/0.7 mL 07/06/2021 12:00:00 AM EDT syringe 0 INJECT DIRECTED INJECT DIRECTED SOLD: 07/06/2021 [facility] ferrous sulfate 325 MG Oral Tablet Ferrous Sulfate 325 (65 Fe) MG Ferrous Sulfate 325 (65 Fe) MG 05/27/2021 12:00:00 AM EDT 1.0 {tablet} active Ferrous Sulfate 325 (65 Fe) MG eCW1 ([facility]) Ciprofloxacin 500 MG Oral Tablet [Cipro] Cipro 500 MG Cipro 500 MG 11/24/2020 12:00:00 AM EDT 1.0 {tablet} active Ci pro 500 MG eCW1 ([facility]) Ciprofloxacin 500 MG Oral Tablet [Cipro] Cipro 500 MG Cipro 500 MG 11/24/2020 12:00:00 AM EDT 1.0 {tablet} active Ci pro 500 MG eCW1 ([facility]) Ciprofloxacin 500 MG Oral Tablet [Cipro] Cipro 500 MG Cipro 500 MG 11/24/2020 12:00:00 AM EDT 1.0 {tablet} active Ci pro 500 MG eCW1 ([facility]) 500 mg 11/24/2020 12:00:00 AM EDT tablet 6 TAKE ONE TABLET BY MOUTH EVERY 12 HOURS FOR 3 DAYS TAKE ONE TABLET BY MOUTH EVERY 12 HOURS FOR 3 DAYS LORI [facility] Ciprofloxacin 500 MG Oral Tablet [Cipro] Cipro 500 MG Cipro 500 MG 11/24/2020 12:00:00 AM EDT 1.0 {tablet} active Ci pro 500 MG eCW1 ([facility]) 0.05 % 05/29/2020 12:00:00 AM EDT cream 15 APPLY SMALL AMOUNT OF CREAM TO AFFECTED AREA NIGHTLY FOR 14 DAYS THEN TWICE WEEKLY FOR 30 DAYS APPLY SMALL AMOUNT OF CREAM TO AFFECTED AREA NIGHTLY FOR 14 DAYS THEN TWICE WEEKLY FOR 30 DAYS SOLD: 05/29/2020 [facility] 100 mg 05/27/2020 12:00:00 AM EDT capsule 10 TAKE ONE CAPSULE BY MOUTH TWICE A DAY FOR 5 DAYS TAKE ONE CAPSULE BY MOUTH TWICE A DAY FOR 5 DAYS SOLD: 05/27/2020 [facility] Insurance Providers Payer name Policy type / Coverage type Policy ID Covered green party ID Covered green party's relationship to farris Policy Farris Plan Information MEDICARE [id number] SP [id number] [place] [id number] Self [id number] B [facility] [id number] [facility] [id number] [facility] OPTIONS [id number] SP [id number] ANSI-Commercial [id number] ANSI-Medicare Part B [id number] ANSI-Medicare Part B [id number] ANSI-Commercial [id number] ANSI-Commercial [id number] ANSI-Medicare Part B [id number] ANSI-Medicare Part B [id number] ANSI-Commercial [id number] ANSI-Medicare Part B [id number] ANSI-Commercial [id number] ANSI-Medicare Part B [id number] ANSI-Commercial [id number] ANSI-Medicare Part B [id number] ANSI-Commercial [id number] MEDICARE [id number] SP [id number] ANSI-Commercial [id number] ANSI-Commercial [id number] ANSI-Medicare Part B [id number] ANSI-Medicare Part B [id number] ANSI-Commercial [id number] AARP O [id number] S [id number] MEDICARE C [id number] S [id number] B MEDICARE [id number] SP [id number] B [facility] OPTIONS -O/P [id number] 18 [id number] MEDICARE PART A -O/P [id number] 18 [id number] [facility] O [id number] S [id number] [facility] Health Care Options [facility] Part B [id number] Self SELF PAY UNAVAILABLE SP UNAVAILA BLE ANSI-Medicare Part B [id number] [facility] OPTIONS [id number] SP [id number] ANSI-Medicare Part B [id number] ANS-Commercial [id number] ANSI-Medicare Part B [id number] ANSI-Commercial [id number] Problems, Conditions, and Diagnoses Code Display Name Description Problem Type Effective Dates Data Source(s) 83805010 Allergic asthma without status asthmatic us Allergic asthma without status asthmaticus Problem 03/30/2021 12:00:00 AM EDT MEDENT ([facility], ) L90.0 40990580 Lichen sclerosus et atrophicus Problem 06/23/2020 12:00:00 AM EDT eCW1 ([facility]) L90.0 [id number] Lichen sclerosus Problem 06/23/2020 12:00:00 AM EDT eCW1 ([facility]) Surgeries/Procedures No Information Results ID Date Data Source [id number] 01/17/2021 07:11:00 PM EDT [facility] Name Value Range Interpretation Code Description Data Nikky rce(s) Supporting Document(s) SARS-CoV-2 (COVID 19) NEGATIVE - SARS-CoV-2 (COVID19) [facility] This lab was ordered by [facility] a nd reported by [facility]. Procedure Social History Code Duration Value Status Description Data Source(s ) Smoking 05/27/2021 12:00:00 AM EDT UNK completed eCW1 ([facility]) Smoking 02/24/2021 12:00:00 AM EDT UNK completed eCW1 ([facility]) Smoking 02/24/2021 12:00:00 AM EDT UNK completed eCW1 ([facility]) Smoking 02/24/2021 12:00:00 AM EDT UNK completed eCW1 ([facility]) Smoking 11/24/2020 12:00:00 AM EDT UNK completed eCW1 ([facility]) Smoking 06/24/2020 12:00:00 AM EDT UNK completed eCW1 ([facility]) Smoking 06/24/2020 12:00:00 AM EDT UNK completed eCW1 ([facility]) Smoking 06/24/2020 12:00:00 AM EDT UNK completed eCW1 ([facility]) Vital Signs ID Date Data Source UNK Name Value Range Interpretation Code Description Data Source(s) Body height 66 [in_i] 66 [in_i] W1 ([facility]) Body weight 149 [lb_av] 149 [lb_av] eCW1 ([facility]) Body weight 67.59 kg 67.59 kg W1 ([facility]) Body mass index (BMI) [Ratio] 24.05 kg/m2 24.05 kg/m2 W1 ([facility]) Body temperature 97.3 [degF] 97.3 [degF] W1 ( [facility]) Systolic blood pressure 128 mm[Hg] 128 mm[Hg] e CW1 ([facility]) Diastolic blood pressure 58 mm[Hg] 58 mm[Hg] eCW1 ([facility]) Heart rate 116 /min 116 /min W1 ([facility]) Respiratory rate 22 /min 22 /min eCW1 ([facility]) Body height 62 [in_i] 62 [in_i] [facility] ([facility]) 5'2" Body weight 149.00 [lb_av] 149.00 [lb_av] MEDEN T ([facility]) Body mass index (BMI) [Ratio] 27.2 kg/m2 27.2 k g/m2 [facility] ([facility]) [place] body weight 110 [lb_av] 110 [lb_av] MEDEN T ([facility]) Body weight 67.586 kg 67.586 kg [facility] ([facility]) Body surface area Derived from formula 1.69 m2 1.69 m2 [facility] ([facility]) Body weight 148.0 [lb_av] 148.0 [lb_av] eCW1 ([facility]) Body height 66 [in_i] 66 [in_i] eCW1 ([facility]) Body mass index (BMI) [Ratio] 23.89 kg/m2 23.89 kg/m2 eCW1 ([facility]) Heart rate 126 /min 126 /min eCW1 ([facility]) Respiratory rate 22 /min 22 /min eCW1 ([facility]) Body temperature 98.2 [degF] 98.2 [degF] eCW1 ( [facility]) Systolic blood pressure 130 mm[Hg] 130 mm[Hg] e CW1 ([facility]) Diastolic blood pressure 84 mm[Hg] 84 mm[Hg] eCW1 ([facility]) Body weight 145.8 [lb_av] 145.8 [lb_av] eCW1 ([facility]) Body height 66 [in_i] 66 [in_i] eCW1 ([facility]) Body mass index (BMI) [Ratio] 23.53 kg/m2 23.53 kg/m2 eCW1 ([facility]) Heart rate 99 /min 99 /min eCW1 ([facility]) Respiratory rate 20 /min 20 /min eCW1 ([facility]) Body temperature 96.8 [degF] 96.8 [degF] eCW1 ( [facility]) Systolic blood pressure 128 mm[Hg] 128 mm[Hg] e CW1 ([facility]) Diastolic blood pressure 64 mm[Hg] 64 mm[Hg] eCW1 ([facility]) Body weight 159 [lb_av] 159 [lb_av] eCW1 ([facility]) Body weight 72.12 kg 72.12 kg eCW1 ([facility]) Body height 66 [in_i] 66 [in_i] W1 ([facility]) Body mass index (BMI) [Ratio] 25.66 kg/m2 25.66 kg/m2 [facility] ([facility]) Systolic blood pressure 122 mm[Hg] 122 mm[Hg] e CW1 ([facility]) Diastolic blood pressure 76 mm[Hg] 76 mm[Hg] eCW1 ([facility]) Patient Treatment Plan of Care Planned Activity Planned Date Details Description Data Source (s) ferrous sulfate 325 MG Oral Tablet 05/27/2021 12:00:00 AM EDT eCW1 ([facility]) Ciprofloxacin 500 MG Oral Tablet [Cipro] 11/24/2020 12:00:00 AM EDT eCW1 ([facility])
--- NOTE | 2021-07-27 09:41 | REP ---
INDICATION: left foot pain post injury 12 d ago. COMPARISON: None. TECHNIQUE: Four views FINDINGS: Mild and moderate degenerative changes are seen throughout the foot. There is no evidence of an acute fracture, dislocation, or subluxation. There is a small plantar calcaneal heel spur. IMPRESSION: No evidence of an acute osseous abnormality. <Electronically signed by Jono Gonzalez > 07/27/21 [id number]
--- NOTE | 2021-07-27 09:42 | REP ---
INDICATION: foot injury,fall COMPARISON: 09/28/2016 TECHNIQUE: Portable AP view of the chest FINDINGS: The mediastinum and cardiac silhouette are stable and within normal limits for portable technique. Moderate hiatal hernia again noted. The lung staton demonstrate stable chronic changes without acute consolidation, effusion, or pneumothorax. Skeletal structures are intact. IMPRESSION: No acute cardiopulmonary process appreciated. Stable hiatal hernia. <Electronically signed by Mahendra Rios > 07/27/21 0955
[2021-07-27 09:44] LABS: BASO # 0.1 10^3/uL (0.0-0.2); BASO % 0.4 % (0.0-1.0); EOS # 0.3 10^3/uL (0.0-0.5); EOS % 2.1 % (0.0-3.0); HEMATOCRIT 41.8 % (36.0-47.0); HEMOGLOBIN 12.7 g/dl (12.0-15.5); LYMPH # 1.3 10^3/uL (1.5-5.0); LYMPH % 9.8 % (24.0-44.0); MEAN CORPUSCULAR HGB CONC 30.4 g/dl (32.0-36.5); MEAN CORPUSCULAR VOLUME 92.1 fl (80.0-96.0); MONO # 0.6 10^3/uL (0.0-0.8); MONO % 4.4 % (2.0-8.0); NEUTROPHILS # 11.2 10^3/uL (1.5-8.5); NEUTROPHILS % 82.7 % (36.0-66.0); PLATELET COUNT, AUTOMATED 259 10^3/uL (150-450); RED BLOOD COUNT 4.54 10^6/uL (4.00-5.40); WHITE BLOOD COUNT 13.5 10^3/uL (4.0-10.0)
[2021-07-27 10:10] LABS: ALBUMIN 2.7 GM/DL (3.2-5.2); ALT/SGPT 21 U/L (12-78); BILIRUBIN,DIRECT 0.2 MG/DL (0.0-0.2); BILIRUBIN,TOTAL 0.6 MG/DL (0.2-1.0); BLOOD UREA NITROGEN 13 MG/DL (7-18); C REACTIVE PROTEIN QUANTITATIV 1.26 MG/DL (0.00-0.30); CALCIUM LEVEL 8.8 MG/DL (8.8-10.2); CARBON DIOXIDE LEVEL 26 MEQ/L (21-32); CHLORIDE LEVEL 108 MEQ/L (98-107); CREATININE FOR GFR 0.82 MG/DL (0.55-1.30); GLOMERULAR FILTRATION RATE > 60.0 (>32); GLUCOSE, FASTING 112 MG/DL (70-100); POTASSIUM SERUM 4.3 MEQ/L (3.5-5.1); SODIUM LEVEL 139 MEQ/L (136-145); TOTAL PROTEIN 6.9 GM/DL (6.4-8.2)
[2021-07-27 10:16] LABS: ERYTHROCYTE SEDIMENTATION RATE 41 mm/hr (0-30)
[2021-07-27] MEDS ORDERED: MEROPENEM INJ 1 GM in IV 1 EA IV ONE (11:00)
[2021-07-27] MEDS ORDERED: DICL1GEL3 TOP (11:27)
[2021-07-27] MEDS ORDERED: FERR1TAB8 PO (11:27)
[2021-07-27] MEDS ORDERED: APAP325T4 PO (11:27)
[2021-07-27] MEDS ORDERED: LOPE-26 PO (11:29)
[2021-07-27] MEDS ORDERED: META28.32 PO (11:29)
[2021-07-27] MEDS ORDERED: HOME MED LIST COMPLETE! XX SCH (11:30)
--- OUTSIDE RECORDS SUMMARY | 2021-07-27 12:04 | CCD ---
Author Author [facility] Organization [facility] Address Unknown Phone Unavailable Support Name Relationship Address Phone LONG ERNST Next Of Kin [id number] [place] [phone] UE Next Of Kin Unknown Unavailable ZELDA ERNST Next Of Kin [address] [place] [address] JAS ERNSTI Next Of Kin [id number] [place] [address] RETIRED Next Of Kin Unknown RE Next Of Kin Unknown Unavailable VENITANAVJOTCoyLUCHO Next Of Kin [id number] [place] [address] Lucho Ernst/Long ECON [address] [place] [address] Unavailable Zelda Ernst ECON [id number] [place] [address] Unavailable Re-disclosure Warning The records that you [...] is protected by Article 27-F of the [facility] Public Health law. If you continue you may have access to information: Regarding HIV / AIDS; Provided by facilities licensed or operated by the [facility] Office of Mental Health; or Provided by the [facility] Office for People With Developmental Disabilities. If such information is present, then the following [facility] mandated warning applies: This information has [...] law may result in a fine or shelter sentence or both. A general authorization for the release of medical or other information is NOT sufficient authorization for further disc losure. Family History Family Member Name Family Member Gender Family Member Status Date o f Status Description Data Source(s) Unknown Female Problem MEDENT ([facility]) Encounters Encounter Providers Location Date Indications Data Source(s ) Outpatient [address] [facility] [id number] 05/27/2021 12:00:00 AM EDT eCW1 ([facility]) Unknown [address] [facility] [id number] 05/05/2021 12:00:00 AM EDT eCW1 ([facility]) Unknown [address] [facility] [id number] 02/24/2021 12:00:00 AM EDT eCW1 ([facility] Outpatient [address] [facility] [id number] 02/24/2021 12:00:00 AM EDT eCW1 ([facility]) Outpatient [address] [facility] [id number] 11/24/2020 12:00:00 AM EDT eCW1 ([facility]) Unknown [address] [facility] [id number] 11/07/2020 12:00:00 AM EST eCW1 ([facility]) Unknown [address] [facility] [id number] 09/02/2020 12:00:00 AM EST eCW1 ([facility]) (WC 20ESGYN) WCenter 20 Min Est Sexual Assault Counselor [address] [place] [address] 06/24/2020 12:00:00 AM EDT eCW1 ([facility]) Immunizations Vaccine Date Status Description Data Source(s) COVID-19 VACCINE Moderna 07/17/2021 12:00:00 AM EST completed [facility] Vaccine Series Complete: YESThis Data wa s Submitted to [facility] Via [facility]. COVID-19 dose #2 given elsewhere Unspecified 10/28/2020 09:2 1:00 AM EST completed eCW1 ([facility]) COVID-19 dose #2 given elsewhere Unspecified 10/28/2020 09:2 1:00 AM EST completed eCW1 ([facility]) COVID-19 dose #2 given elsewhere Unspecified 10/28/2020 09:2 1:00 AM EST completed eCW1 ([facility]) COVID-19 dose #2 given elsewhere Unspecified 10/28/2020 09:2 1:00 AM EST completed eCW1 ([facility]) COVID-19 dose #2 given elsewhere Unspecified 10/28/2020 09:2 1:00 AM EST completed eCW1 ([facility]) COVID-19 VACCINE, MRNA-1273, LNP-S (MODERNA)/PF 10/28/2020 1 2:00:00 AM EST completed [facility] COVID-19 dose #1 given elsewhere Unspecified 09/30/2020 09:2 0:00 AM EST completed eCW1 ([facility]) COVID-19 dose #1 given elsewhere Unspecified 09/30/2020 09:2 0:00 AM EST completed eCW1 ([facility]) COVID-19 dose #1 given elsewhere Unspecified 09/30/2020 09:2 0:00 AM EST completed eCW1 ([facility]) COVID-19 dose #1 given elsewhere Unspecified 09/30/2020 09:2 0:00 AM EST completed eCW1 ([facility]) COVID-19 dose #1 given elsewhere Unspecified 09/30/2020 09:2 0:00 AM EST completed eCW1 ([facility]) COVID-19 VACCINE Moderna 09/30/2020 12:00:00 AM EST completed [facility] Vaccine Series Complete: NOThis Data was Submitted to [facility] Via [facility]. COVID-19 VACCINE, MRNA-1273, LNP-S (MODERNA)/PF 09/30/2020 1 2:00:00 AM EST completed [facility] IIV3. This is one of two codes replacing CVX 15, which is being retired. 07/02/2020 06:20:00 AM EDT completed eCW1 ([facility]) IIV3. This is one of two codes replacing CVX 15, which is being retired. 07/02/2020 06:20:00 AM EDT completed eCW1 ([facility]) IIV3. This is one of two codes replacing CVX 15, which is being retired. 07/02/2020 06:20:00 AM EDT completed eCW1 ([facility]) IIV3. This is one of two codes replacing CVX 15, which is being retired. 07/02/2020 06:20:00 AM EDT completed eCW1 ([facility]) IIV3. This is one of two codes replacing CVX 15, which is being retired. 07/02/2020 06:20:00 AM EDT completed eCW1 ([facility]) Medications Medication Brand Name Start Date Product [...] Ferrous Sulfate 325 (65 Fe) MG eCW1 ([facility]) Ciprofloxacin 500 MG Oral Tablet [Cipro] Cipro 500 MG Cipro 500 MG 11/24/2020 12:00:00 AM EDT 1.0 {tablet} active Ci pro 500 MG eCW1 ([facility]) Ciprofloxacin 500 MG Oral Tablet [Cipro] Cipro 500 MG Cipro 500 MG 11/24/2020 12:00:00 AM EDT 1.0 {tablet} active Ci pro 500 MG eCW1 ([facility]) Ciprofloxacin 500 MG Oral Tablet [Cipro] Cipro 500 MG Cipro 500 MG 11/24/2020 12:00:00 AM EDT 1.0 {tablet} active Ci pro 500 MG eCW1 ([facility]) 500 mg 11/24/2020 12:00:00 AM EDT tablet 6 TAKE ONE TABLET BY MOUTH EVERY 12 HOURS FOR 3 DAYS TAKE ONE TABLET BY MOUTH EVERY 12 HOURS FOR 3 DAYS LORI [facility] Ciprofloxacin 500 MG Oral Tablet [Cipro] Cipro 500 MG Cipro 500 MG 11/24/2020 12:00:00 AM EDT 1.0 {tablet} active Ci pro 500 MG eCW1 ([facility]) 0.05 % 05/29/2020 12:00:00 AM EDT cream [...] to farris Policy Farris Plan Information MEDICARE [id number] SP [id number] B [place] Primary [id number] Self [id number] B [facility] [id number] [facility] [id number] [facility] OPTIONS [id number] SP [id number] ANSI-Commercial [id number] ANSI-Medicare Part B [id number] ANSI-Medicare Part B [id number] ANSI-Commercial [id number] ANSI-Commercial [id number] ANSI-Medicare Part B [id number] ANSI-Medicare Part B [id number] ANSI-Commercial [id number] ANSI-Medicare Part B [id number] ANSI-Commercial [id number] ANSI-Medicare Part B [id number] ANSI-Commercial [id number] ANSI-Medicare Part B [id number] ANSI-Commercial [id number] MEDICARE [id number] SP [id number] ANSI-Commercial [id number] ANSI-Commercial [id number] ANSI-Medicare Part B [id number] ANSI-Medicare Part B [id number] ANSI-Commercial [id number] AARP O [id number] S [id number] 111 MEDICARE C [id number] S [id number] B MEDICARE [id number] SP [id number] B [facility] HE[facility] OPTIONS -O/P [id number] 18 [id number] MEDICARE PART A -O/P [id number] 18 [id number] [facility] O [id number] S [id number] [facility] Health Care Options [facility] Part B [id number] Self SELF PAY UNAVAILABLE SP UNAVAILA BLE ANSI-Medicare Part B [id number] [facility] HEALTH CARE OPTIONS [id number] SP [id number] ANSI-Medicare Part B [id number] ANS-Commercial [id number] ANSI-Medicare Part B [id number] ANSI-Commercial [id number] Problems, Conditions, and Diagnoses Code Display Name Description Problem Type Effective Dates Data Source(s) 07206682 Allergic asthma without status asthmatic us Allergic asthma without status asthmaticus Problem 03/30/2021 12:00:00 AM EDT MEDENT ([facility], ) L90.0 [id number] Lichen sclerosus et atrophicus Problem 06/23/2020 12:00:00 AM EDT eCW1 ([facility]) L90.0 [id number] Lichen sclerosus Problem 06/23/2020 12:00:00 AM EDT eCW1 ([facility]) Surgeries/Procedures No Information Results ID Date Data Source [id number] 01/17/2021 07:11:00 PM EDT [facility] Name Value Range Interpretation Code Description Data Nikky rce(s) Supporting Document(s) SARS-CoV-2 (COVID 19) NEGATIVE - SARS-CoV-2 (COVID19) [facility] This lab was ordered by [facility] a nd reported by [facility]. Procedure Social History Code Duration Value Status Description Data Source(s ) Smoking 05/27/2021 12:00:00 AM EDT UNK completed eCW1 ([facility]) Smoking 02/24/2021 12:00:00 AM EDT UNK completed eCW1 ([facility]) Smoking 02/24/2021 12:00:00 AM EDT UNK completed eCW1 ([facility]) Smoking 02/24/2021 12:00:00 AM EDT UNK completed eCW1 ([facility]) Smoking 11/24/2020 12:00:00 AM EDT UNK completed eCW1 ([facility]) Smoking 06/24/2020 12:00:00 AM EDT UNK completed eCW1 ([facility]) Smoking 06/24/2020 12:00:00 AM EDT UNK completed eCW1 ([facility]) Smoking 06/24/2020 12:00:00 AM EDT UNK completed eCW1 ([facility]) Vital Signs ID Date Data Source UNK Name Value Range Interpretation Code Description Data Source(s) Body temperature 97.3 [degF] 97.3 [degF] eCW1 ( [facility]) Body height 66 [in_i] 66 [in_i] eCW1 ([facility]) Body weight 149 [lb_av] 149 [lb_av] eCW1 ([facility]) Systolic blood pressure 128 mm[Hg] 128 mm[Hg] e CW1 ([facility]) Body weight 67.59 kg 67.59 kg eCW1 ([facility]) Diastolic blood pressure 58 mm[Hg] 58 mm[Hg] eCW1 ([facility]) Body mass index (BMI) [Ratio] 24.05 kg/m2 24.05 kg/m2 eCW1 ([facility]) Heart rate 116 /min 116 /min W1 ([facility]) Respiratory rate 22 /min 22 /min eCW1 ([facility]) Body surface area Derived from formula 1.69 m2 1.69 m2 [facility] ([facility]) Body height 62 [in_i] 62 [in_i] [facility] ([facility]) 5'2" Body weight 149.00 [lb_av] 149.00 [lb_av] MEDEN T ([facility]) Body mass index (BMI) [Ratio] 27.2 kg/m2 27.2 k g/m2 [facility] ([facility]) [place] body weight 110 [lb_av] 110 [lb_av] [facility] Body weight 67.586 kg 67.586 kg [facility] ([facility]) Body weight 148.0 [lb_av] 148.0 [lb_av] eCW1 ([facility]) Body height 66 [in_i] 66 [in_i] eCW1 ([facility]) Body mass index (BMI) [Ratio] 23.89 kg/m2 23.89 kg/m2 eCW1 ([facility]) Heart rate 126 /min 126 /min eCW1 ([facility]) Respiratory rate 22 /min 22 /min eCW1 ([facility]) Body temperature 98.2 [degF] 98.2 [degF] eCW1 ( [facility]) Systolic blood pressure 130 mm[Hg] 130 mm[Hg] e CW1 ([facility]) Diastolic blood pressure 84 mm[Hg] 84 mm[Hg] eCW1 ([facility]) Body weight 145.8 [lb_av] 145.8 [lb_av] eCW1 ([facility]) Body height 66 [in_i] 66 [in_i] eCW1 ([facility]) Body mass index (BMI) [Ratio] 23.53 kg/m2 23.53 kg/m2 eCW1 ([facility]) Heart rate 99 /min 99 /min eCW1 ([facility]) Respiratory rate 20 /min 20 /min eCW1 ([facility]) Body temperature 96.8 [degF] 96.8 [degF] eCW1 ( [facility]) Systolic blood pressure 128 mm[Hg] 128 mm[Hg] e CW1 ([facility]) Diastolic blood pressure 64 mm[Hg] 64 mm[Hg] eCW1 ([facility]) Body weight 159 [lb_av] 159 [lb_av] eCW1 ([facility]) Body weight 72.12 kg 72.12 kg eCW1 ([facility]) Body height 66 [in_i] 66 [in_i] W1 ([facility]) Body mass index (BMI) [Ratio] 25.66 kg/m2 25.66 kg/m2 [facility] ([facility]) Systolic blood pressure 122 mm[Hg] 122 mm[Hg] e CW1 ([facility]) Diastolic blood pressure 76 mm[Hg] 76 mm[Hg] eCW1 ([facility]) Patient Treatment Plan of Care Planned Activity Planned Date Details Description Data Source (s) ferrous sulfate 325 MG Oral Tablet 05/27/2021 12:00:00 AM EDT eCW1 ([facility]) Ciprofloxacin 500 MG Oral Tablet [Cipro] 11/24/2020 12:00:00 AM EDT eCW1 ([facility])
[2021-07-27 12:21] LABS: RSV AMPLIFICATION NEGATIVE (NEGATIVE)
[2021-07-27] MEDS ORDERED: METAMUCIL (PSYLLIUM) PACKET PO PRN (12:25)
[2021-07-27] MEDS ORDERED: ALBUTEROL 90 MCG/ACT 8GM HFA INHALER INH PRN (12:25)
[2021-07-27] MEDS ORDERED: ISOVUE-370 76% 100ML VIAL As Ordered ONE (12:34)
[2021-07-27] MEDS ORDERED: LOPERAMIDE 2 MG CAPLET PO PRN (12:40)
--- NOTE | 2021-07-27 12:41 | HPEPDOC ---
[facility] Medical History & Physical Date of Admission Jul 27, 2021 Date of Service: Jul 27, 2021 Attending Physician: Tressa Summers MD History and Physical CHIEF COMPLAINT: Left foot pain, swelling HISTORY OF PRESENT ILLNESS: The patient is an 78 y/o female with past medical history of atrial fibrillation on anticoagulation, asthma, hyperlipidemia, iron deficiency anemia, insomnia who presented to [facility] after she complains of increased left foot pain, swelling over the past 2 weeks. The patient states 2 weeks ago she opened her refrigerator door and a quart bottle fell out of bed onto the dorsal part of her left foot. She stated it swelled up significantly and later became bruised. She said she iced it several times a day for over a week at home but despite her efforts in trying to control her pain persisted. She noticed that she was unable to weight-bear on the left foot. Pain was described as 10/10 especially with walking, sharp, lysed only in the foot. She also noted that a large bump later was seen in the area where it was directly hit by the bottle. She denies fevers, chills, nausea, vomiting, increased shortness of breath from baseline, chest pain, lightheadedness, dizziness. She is having loose stools but this is chronic for one year. Due to her ongoing symptoms the patient came to the ER for further evaluation In the emergency room vital signs were stable. WBC elevated at 13.5 along with ESR and CRP. X-ray of the foot showed no evidence of an acute fracture dislocation or subluxation; however there was some concern by ER attending later spoke with orthopedic surgery. CT of the left foot is pending. Due to severe left foot pain and inability to weight-bear also concern for questionable infected hematoma, the patient was admitted for further treatment and investigation. REVIEW OF SYSTEMS: CONSTITUTIONAL: Denies lack of energy, unexplained weight gain or weight loss, loss of appetite, fever, night sweats EYES: Denies eye drainage, eye pain, visual changes, dry/irritated eye EARS, NOSE, MOUTH, THROAT: Denies difficulty hearing, ringing in ears, mouth sores, loose teeth, sore throat, facial numbness or pain NECK: Denies swollen glands CARDIOVASCULAR: Denies irregular heartbeat, racing heart, chest pains= RESPIRATORY: Denies night sweats, wheezing, sputum production, oxygen at home, coughing up blood, cough lasting > 1 month GASTROINTESTINAL: Denies abdominal pain, constipation, bloody stool, diarrhea, heartburn, nausea, vomiting GENITOURINARY: Denies painful urination, bloody urine, frequent urination, urgency, leaking urine, impotence INTEGUMENTARY: Denies rash, itching, new skin lesion, change in existing skin lesion, hair loss or increase, breast changes. NEUROLOGICAL: Denies headaches, dizziness, difficulty walking, numbness or tingling PSYCHIATRIC: Denies depression, anxiety, recurrent bad thoughts, mood swings, hallucinations PAST MEDICAL HISTORY: atrial fibrillation on anticoagulation, asthma, hyperlipidemia, iron deficiency anemia, insomnia PAST SURGICAL HISTORY: Tonsillectomy FAMILY HISTORY: FatherCAD, diabetes. at 62 years old. Ottcancer, type unknown. . SOCIAL HISTORY: Denies illicit drug and tobacco use. Drinks alcohol occasionally. Lives locally with her family. Primary care doctor is Dr. Torres ALLERGIES: Please see below. HOME MEDICATIONS: Please see below. PHYSICAL EXAMINATION: VS: 97.5, 86, 18, 132/61, 97% on room air CONSTITUTIONAL: No acute distress, resting comfortably, AAO x 3 EYES: PERRLA, EOM intact, corrective lenses in place HENT, MOUTH: Normocephalic, atraumatic, moist mucous membranes NECK: SUPPLE, no JVD, no lymphadenopathy, no carotid bruit CV: Regular rate and rhythm, S1S2 normal, no murmurs/rubs/gallops RESPIRATORY: Clear to auscultation bilaterally, no rales/rhonchi/wheezes GI: BS positive in 4 quadrants, soft, nontender, nondistended, no rebound or guarding, no organomegaly : Deferred MUSCULOSKELETAL: Normal ROM of all joints, left ankle and foot not tested. Incr LLE swelling of foot. No cyanosis, clubbing, swelling, joint deformity, extremity edema INTEGUMENTARY: Bruising, redness of the left lower extremity in various areas. Large bump on the dorsum of the left foot in the central region, questionable pus or area of infection within this bumped area. Otherwise everywhere else on the body is Intact, no rashes NEUROLOGIC: Cranial Nerves II-XII are intact, no focal deficits PSYCHIATRIC: Mood and affect are normal LABORATORY DATA: Please see below IMAGING: XR left foot : No evidence of an acute osseous abnormality. CXR: No acute cardiopulmonary process appreciated. Stable hiatal hernia. ASSESSMENT: 78 y/o female with past medical history of atrial fibrillation on anticoagulation, asthma, hyperlipidemia, iron deficiency anemia, insomnia admitted for left foot pain, swelling, rule out fracture. PLAN: Left foot pain with swelling s/p foot trauma -R/o fracture, infected area on foot -CT of LLE ordered -WBC 13.5- per patient the bruising, swelling and redness is actually better -Elevated ESR, CRP -ER spoke with orthopedics who could not r/o fx. Area on dorsum of foot looks like ? infection with central pus area? -C/w meropenem, pain control, f/u orthopedic surgery recommendations. Will also have general surgery look at foot to see if something appears to need draining. -PT/OT based off CT scan Atrial fib -Currently controlled -On AC, holding for today -C/w BB Loose stools, chronic -Not sure as to what causes this per patient -C/w home medications JEANA -holding ferrous sulfate Asthma -Stable on RA -CXR neg DVT px -stanton/scds, holding AC for now DISPOSITION: Admitted under inpatient status. Plan is orthopedic surgery to evaluate, will also have general surgery look at foot to see if anything needs draining. Vital Signs Vital Signs Date Time Temp Pulse Resp B/P (MAP) Pulse Ox O2 Delivery O2 Flow Rate FiO2 07/27/21 08:45 97.5 86 18 132/61 (84) 97 Room Air Laboratory Data Labs 24H Laboratory Tests 2 07/27/21 09:28: Anion Gap 5L, Glomerular Filtration Rate > 60.0, Calcium Level 8.8, Total Bilirubin 0.6, Direct Bilirubin 0.2, Aspartate Amino Transf (AST/SGOT) 17, Alanine Aminotransferase (ALT/SGPT) 21, Alkaline Phosphatase 64, C-Reactive Protein, Quantitative 1.26H, Total Protein 6.9, Albumin 2.7L, Albumin/Globulin Ratio 0.6L 07/27/21 09:30: Immature Granulocyte % (Auto) 0.6, Neutrophils (%) (Auto) 82.7H, Lymphocytes (%) (Auto) 9.8L, Monocytes (%) (Auto) 4.4, Eosinophils (%) (Auto) 2.1, Basophils (%) (Auto) 0.4, Neutrophils # (Auto) 11.2H, Lymphocytes # (Auto) 1.3L, Monocytes # (Auto) 0.6, Eosinophils # (Auto) 0.3, Basophils # (Auto) 0.1, Nucleated Red Blood Cells % (auto) 0.0, Erythrocyte Sedimentation Rate 41H 07/27/21 11:29: Coronavirus (COVID-19)(PCR) NEGATIVE, Influenza Type A (RT-PCR) NEGATIVE, Influenza Type B (RT-PCR) NEGATIVE, Respiratory Syncytial Virus (PCR) NEGATIVE CBC/BMP Laboratory Tests 07/27/21 09:28 07/27/21 09:30 Microbiology Microbiology 07/27/21 Blood Culture, Received Pending Home Medications Scheduled Acetaminophen (Acetaminophen) 325 Mg Tablet, 650 MG PO TID Bisoprolol Fumarate (Bisoprolol Fumarate) 5 Mg Tablet, 7.5 MG PO BID Budesonide/Formoterol (Symbicort 160-4.5 Mcg Inhaler) 6 Gm Hfa.aer.ad, 2 PUFFS INH BID Calcium Carbonate/Vitamin D3 (Calcium 1,000 + D3 Caplet) 1 Each Tablet, 1 TAB PO DAILY LUNCH Cyanocobalamin (Vitamin B-12) (Vitamin B-12) 5,000 Mcg Tab.rapdis, 5,000 MCG PO DAILY LUNCH Ferrous Sulfate (Ferrous Sulfate) 325 Mg Tablet, 325 MG PO 3XW MON/WED/FRI AT NOON L.acidoph/L.bulg/B.bif/S.therm (Bacid Caplet) 1 Each Tablet, 1 TAB PO DAILY LUNCH Rivaroxaban (Xarelto) 20 Mg Tablet, 20 MG PO DAILY LUNCH Triamcinolone Acetonide (Nasacort) 10.8 Ml [place], 2 SPRAY NARES BID Scheduled PRN Albuterol Sulfate (Ventolin Hfa) 18 Gm Hfa.aer.ad, 2 PUFF INH Q4H PRN for SOB/WHEEZING Diclofenac Sodium (Diclofenac Sodium) 1% 100GM Gel..gram., 2 GM TOP QHS PRN for KNEE PAIN Apply to area of pain Loperamide HCl (Anti-Diarrheal) 2 Mg Capsule, 4 MG PO Q6H PRN for DIARRHEA Melatonin (Melatonin) 10 Mg Capsule, 10 MG PO QHS PRN for SLEEP Psyllium Husk (with Sugar) (Metamucil Powder) 575 Gm Powder, 1 PKT PO BID PRN for CONSTIPATION Allergies Coded Allergies: Penicillins (Verified Allergy, Unknown, 07/27/21) Sulfa (Sulfonamide Antibiotics) (Verified Allergy, Unknown, 07/27/21) A-FIB/CHADSVASC A-FIB History Current/History of A-Fib/PAF?: Yes Current PO Anticoag Therapy: Yes Age/Risk Factor Scoring CHADSVASC: CHADSVASC Response (Comments) Value Age Risk Factor Age >/= 75 years old 2 Gender Risk Factor Female 1 Hx of CHF No 0 Hx of HTN No 0 Hx of Stroke/TIA/or VTE No 0 Hx of Diabetes No 0 Hx of Vascular Disease No 0 Total 3 Treatment Treatment ordered: Other Other anticoagulant ordered: Tressa Nagy MD Jul 27, 2021 12:41
[2021-07-27] MEDS ORDERED: traMADol 50 MG TAB PO PRN (12:45)
[2021-07-27 13:15] LABS: INR 1.16; PARTIAL THROMBOPLASTIN TIME 31.5 SECONDS (25.9-37.0); PROTHROMBIN TIME 15.2 SECONDS (12.7-14.5)
--- NOTE | 2021-07-27 13:56 | REP ---
INDICATION: r/o left foot abscess, fx. COMPARISON: None. TECHNIQUE: 2 x 2 mm increments using helical technique and reconstructed in both sagittal and coronal planes FINDINGS: There is no acute fracture, dislocation, or subluxation. There is diffuse soft tissue swelling of the mid and lateral aspects of the anterior surface of the foot throughout the midfoot region. There is no CT evidence of an air-fluid level or abnormal air density. IMPRESSION: 1. Soft tissue swelling as described above. 2. No evidence of an acute osseous abnormality. <Electronically signed by Jono Gonzalez > 07/27/21 [id number]
[2021-07-27 14:10] VITALS: BP 138/93
[2021-07-27] MEDS: LACTOBACILLUS ACIDOPHILUS CAP (BACID) PO SCH (15:32)
[2021-07-27] MEDS: ACETAMINOPHEN TAB 650MG DOSE (2X325MG) PO SCH ×2 (15:32→21:24)
[2021-07-27] MEDS: SYMBICORT 160/4.5MCG INHALER 6GM INH SCH (20:51)
[2021-07-27] MEDS: bisoproloL fumarate 5 MG TAB PO SCH (21:25)
[2021-07-27 22:00] VITALS: BP 129/68
[2021-07-28 06:00] VITALS: BP 119/77
[2021-07-28 07:04] LABS: HEMATOCRIT 39.3 % (36.0-47.0); HEMOGLOBIN 12.3 g/dl (12.0-15.5); MEAN CORPUSCULAR HEMOGLOBIN 28.5 pg (27.0-33.0); MEAN CORPUSCULAR HGB CONC 31.3 g/dl (32.0-36.5); PLATELET COUNT, AUTOMATED 246 10^3/uL (150-450); RED BLOOD COUNT 4.32 10^6/uL (4.00-5.40); WHITE BLOOD COUNT 9.2 10^3/uL (4.0-10.0)
[2021-07-28 07:31] LABS: ALBUMIN 2.6 GM/DL (3.2-5.2); ALT/SGPT 18 U/L (12-78); BILIRUBIN,TOTAL 0.5 MG/DL (0.2-1.0); BLOOD UREA NITROGEN 9 MG/DL (7-18); CALCIUM LEVEL 8.9 MG/DL (8.8-10.2); CARBON DIOXIDE LEVEL 28 MEQ/L (21-32); CHLORIDE LEVEL 104 MEQ/L (98-107); CREATININE FOR GFR 0.85 MG/DL (0.55-1.30); GLOMERULAR FILTRATION RATE > 60.0 (>32); GLUCOSE, FASTING 98 MG/DL (70-100); SODIUM LEVEL 139 MEQ/L (136-145); TOTAL PROTEIN 6.8 GM/DL (6.4-8.2)
[2021-07-28] MEDS: SYMBICORT 160/4.5MCG INHALER 6GM INH SCH ×2 (07:31→20:00)
[2021-07-28 07:45] VITALS: BP 137/77
[2021-07-28] MEDS ORDERED: PILL CUTTER 1 EACH XX PRN (09:15)
[2021-07-28] MEDS: LACTOBACILLUS ACIDOPHILUS CAP (BACID) PO SCH (09:33)
[2021-07-28] MEDS: bisoproloL fumarate 5 MG TAB PO SCH ×2 (09:34→21:19)
[2021-07-28] MEDS: ACETAMINOPHEN TAB 650MG DOSE (2X325MG) PO SCH ×3 (09:35→21:18)
--- NOTE | 2021-07-28 10:02 | CR ---
CONSULTATION DATE: 07/27/2021 CHIEF COMPLAINT: Left foot hematoma, possible infection. HISTORY OF PRESENT ILLNESS: This is an 78-year-old female who dropped a water bottle on her foot about two weeks ago. She complains about increased pain and swelling over the last two weeks and difficulty ambulating. I was called to assess for possible infected hematoma or infection. She denies fevers, chills, nausea, vomiting or increased shortness of breath, chest pain, lightheadedness, dizziness or drainage. She states that the redness has looked the same for the last two weeks, it is not spreading or getting worse but she is having difficulty ambulating. PAST MEDICAL HISTORY: Per the Hospitalist, includes atrial fibrillation on anticoagulation, asthma, hyperlipidemia, iron deficiency anemia, insomnia. MEDICATIONS: Acetaminophen, Bisoprolol, Symbicort, calcium carbonate, Cyanocobalamin, ferrous sulfate, Rivaroxaban, triamcinolone acetonide. ALLERGIES: Penicillin and sulfa. PAST SURGICAL HISTORY: Tonsillectomy. SOCIAL HISTORY: Denies illicit drug use and tobacco use. PHYSICAL EXAMINATION: She is afebrile. Her blood pressure is stable at 97% on room air. There are no other obvious injuries to her upper or lower extremities. On the dorsum of the left foot there is an area approximately encompassing half of the dorsum of the midfoot of redness. It is a little bit tender to palpation. There is no obvious fluid collection or abscess. No drainage. There is very minimal warmth. There is some slight tenderness with light touch. She also has some older appearing ecchymosis above the toes and medial lateral side of her ankle but there is no pain to palpation of the medial or lateral side of the ankle. No pain with range of motion of the toes or the ankle itself. Normal sensation and normal motor function to superficial and deep peroneal nerves as well as saphenous, sural and tibial. Strong dorsalis pedis pulse. LABORATORY DATA: Laboratory examination revealed white blood cell count of 13.5, neutrophils percentage 82.7, ESR 41, CRP was 6.9. She is COVID negative. Foot x-ray revealed no evidence of an acute osseous abnormality. Foot CT demonstrated per radiologist impression: Soft tissue swelling. No evidence of any acute osseous abnormalities, diffuse soft tissue swelling in the mid and lateral aspects of the anterior surface of the foot through the midfoot region. No CT evidence of an air fluid level or abnormal air density. ASSESSMENT AND PLAN: This 86-year-old female appears to have a left foot hematoma. There is possible suspicion of cellulitis and the patient has been started on IV antibiotics which I do recommend until her inflammatory markers have normalized. I see no obvious role for surgical intervention. No obvious drainage fluid collection. I do also suggest the patient be assessed by Infectious Disease to determine proper antibiotic coverage as well. I will not follow the patient while in the hospital although can reassess as an outpatient. Overall, can be weightbearing as tolerated, rest, ice and elevation of the foot. I have communicated this directly to the patient as well as Dr. Summers when I saw and assessed the patient at approximately 4:30 p.m. today.
[2021-07-28] MEDS: MEROPENEM INJ 1 GM in IV 1 EA IV SCH ×2 (10:18→17:33)
[2021-07-28 14:00] VITALS: BP 122/77
--- NOTE | 2021-07-28 16:13 | CR ---
CONSULTATION DATE: 07/27/2021 HISTORY OF PRESENT ILLNESS: An 78-year-old female who presented with pain on the top of her left foot. Patient states that two weeks ago, she dropped a water bottle on the top of her left foot. She was on a blood thinner. This caused considerable swelling of her foot. She states that it has improved on antibiotics and she has noticed some slight reduction in pain and swelling and she is seen today for evaluation. PAST MEDICAL HISTORY: 1. Atrial fibrillation on anticoagulants. 2. Asthma. 3. Hyperlipidemia. 4. Iron deficiency anemia. 5. Insomnia. PAST SURGICAL HISTORY: Tonsillectomy. PHYSICAL EXAMINATION: GENERAL: Alert, well-oriented 86-year-old female in no acute distress. EXTREMITIES: Evaluation of the dorsal aspect of her foot reveals an area of erythema and swelling. The erythema measures 7 cm from distal to proximal and 6 cm from medial to lateral. There is a well-circumcised area of soft tissue tenderness and swelling noted approximately 4 cm distal to proximal and 3 cm from medial to lateral, appears to be consistent with hematoma formation. Dorsalis pedis pulse is nonpalpable, but the tibial pulse is palpable. IMAGING DATA: Patient had an x-ray of her left foot, which was negative for osseous abnormalities. She has had a CT scan of her foot, which reveals no fractures or subluxations, but swelling noted on the anterior swelling of the foot. No abnormal area density. ASSESSMENT: Hematoma formation, dorsal surface left foot. PLAN: Patient will be nothing by mouth (NPO) after breakfast. Patient's last dose of Xarelto was Tuesday. We discussed this afternoon doing an incision and drainage of the hematoma, dorsal surface left foot. Patient's questions are answered. Informed consent was obtained and signed by the patient.
--- NOTE | 2021-07-28 21:04 | IPNPDOC ---
Date Seen The patient was seen on 07/28/21. Progress Note SUBJECTIVE: seen and examined at bedside. doing well, no acute events. Contines to have pain in L foot dorsum. No fevers. OBJECTIVE PHYSICAL EXAMINATION: VITAL SIGNS: please see below General: NAD, comfortable HEENT: PERRLA, EOMI, sclerae clear Neck: supple, normal ROM, no JVD Respiratory: lungs CTAB, no wheeze, no rales, no crackles CVS: RRR, normal S1, S2, no murmurs Abdo: soft, no masses, no hepatosplenomegaly, BS+, no rebound tenderness Extremities: L foot dorsum swollen focally, 3-4 cm in diameter MSK: no joint deformities, normal ROM Neuro: no focal neuro deficits, moving all 4 extremities, CN2-12 intact. Strength 5/5 in all 4 extremities. No nystagmus. Psych: calm, cooperative, AAO x 3 LABORATORY DATA, IMAGING STUDIES, MICROBIOLOGY: Please see below.. ASSESSMENT AND PLAN: 78 y/o female with past medical history of atrial fibrillation on anticoagulation, asthma, hyperlipidemia, iron deficiency anemia, insomnia admitted for left foot pain, swelling, rule out fracture. PROBLEMS: Left foot pain with swelling s/p foot trauma - R/o fracture, infected area on foot - CT of LLE showing soft tissue swelling - leukocytosis has resolved. blood cultures are pending - Elevated ESR, CRP - Dr. Ferris was consulted, and offered conservative management. Can be WBAT. - patient was assessed by podiatry, Dr. Montelongo. plan for evacuation of hematoma Atrial fib -Currently controlled -On AC, holding for today -C/w BB JEANA -holding ferrous sulfate Asthma -Stable on RA -CXR neg DVT px -stanton/scds, xarelto held VS, I&O, 24H, Fishbone Vital Signs/I&O Vital Signs Date Time Temp Pulse Resp B/P (MAP) Pulse Ox O2 Delivery O2 Flow Rate FiO2 07/28/21 14:00 98.2 77 18 122/77 (92) 96 Room Air I&O- Last 24 Hours up to 6 AM 07/28/21 06:00 Intake Total 710 ml Output Total 600 ml Balance 110 ml Laboratory Data 24H LABS Laboratory Tests 2 07/28/21 06:49: Nucleated Red Blood Cells % (auto) 0.0, Anion Gap 7L, Glomerular Filtration Rate > 60.0, Calcium Level 8.9, Total Bilirubin 0.5, Aspartate Amino Transf (AST/SGO T) 18, Alanine Aminotransferase (ALT/SGPT) 18, Alkaline Phosphatase 60, Total Protein 6.8, Albumin 2.6L, Albumin/Globulin Ratio 0.6L CBC/BMP Laboratory Tests 07/28/21 06:49 Microbiology Microbiology 07/27/21 Blood Culture - Preliminary, Resulted No growth after 24 hours . All specim... 07/27/21 Blood Culture - Preliminary, Resulted No growth after 24 hours . All specim... XENIA HUTCHINS MD Jul 28, 2021 21:04
[2021-07-28] MEDS ORDERED: fentaNYL 100 MCG/2 ML INJECTION (J3010) As Ordered ONE (21:49)
[2021-07-28] MEDS ORDERED: propofoL 200 MG/20 ML VIAL As Ordered ONE (21:49)
[2021-07-28] MEDS ORDERED: MIDAZOLAM INJ 2MG/2ML VIAL (J2250 PER 1MG) As Ordered ONE (21:49)
[2021-07-28] MEDS ORDERED: LIDOCAINE 2% 100MG/5ML SDV (FOR ANES.) As Ordered ONE (21:49)
[2021-07-28 22:00] VITALS: BP 123/78
[2021-07-28] MEDS ORDERED: LIDOCAINE 2% MDV 20ML VIAL As Ordered ONE (22:12)
[2021-07-28] MEDS ORDERED: BUPIVACAINE HCL 0.5% 10ML VIAL As Ordered ONE (22:12)
[2021-07-28] MEDS ORDERED: ROPIvacaine 0.5% 30ML INJECTION (J2795 PER 1MG) As Ordered ONE (22:12)
[2021-07-28] MEDS ORDERED: oxyCODONE 5MG TAB PO PRN (23:00)
[2021-07-28] MEDS ORDERED: LR 1,000 ML IV SCH (23:00)
[2021-07-28] MEDS ORDERED: fentaNYL 100 MCG/2 ML INJECTION (J3010) IV PRN (23:00)
[2021-07-28] MEDS ORDERED: ONDANSETRON 4MG/2ML VIAL IV PRN (23:00)
[2021-07-29] VITALS (7 sets, daily range): BP systolic 123–137; BP diastolic 76–82
[2021-07-29] MEDS: MEROPENEM INJ 1 GM in IV 1 EA IV SCH ×2 (02:50→10:52)
--- NOTE | 2021-07-29 07:20 | RO ---
OPERATIVE NOTE DATE OF OPERATION: 07/28/2021 PREOPERATIVE DIAGNOSIS: Hematoma on dorsal aspect of left foot. POSTOPERATIVE DIAGNOSIS: Hematoma on dorsal aspect of left foot. PROCEDURES PERFORMED: 1. Excision and drainage of hematoma, dorsal aspect of left foot. SURGEON: CHULA ELLISON DPM NEURO OPHTHALMOLOGIST: None. ESTIMATED BLOOD LOSS: 1 ml HEMOSTASIS: None. IRRIGATION: Dilute gentamicin solution. DESCRIPTION OF PROCEDURE: On 07/28/2021, this 86-year-old female was taken from her hospital room to the operating room and placed on the operating table in the supine position. Following induction of IV sedation and local regional anesthesia the left lower extremity was prepped and draped in usual aseptic manner. Attention was directed to the base of her left foot. There was noted to be a large hematoma. At this time, a 3 cm incision was placed on the dorsal aspect of the foot. A blackish-blue clot was noted in the subcutaneous and deeper structures. This was evacuated using a curette and finger manipulation. This was placed in a sterile specimen cup for aerobic and anaerobic culture. After the culture was removed from the operative table, then the wound was copiously lavaged and any remaining clot was removed with suction. The wound was closed with 4-0 Prolene in a simple interrupted type fashion. A compressive dressing was then placed on the dorsal aspect of the foot. Minimal bleeding was encountered. Capillary refilling time was present digits 1 through 5. No hemostasis was utilized or required. The patient having apparently tolerated the surgical procedure well was taken from the OR to the recovery room for further monitoring by the anesthesia department. Patient's antibiotics can be tailored according to her culture and sensitivity.
[2021-07-29] MEDS: SYMBICORT 160/4.5MCG INHALER 6GM INH SCH (07:48)
[2021-07-29 07:51] LABS: HEMATOCRIT 39.1 % (36.0-47.0); HEMOGLOBIN 12.2 g/dl (12.0-15.5); MEAN CORPUSCULAR HEMOGLOBIN 28.4 pg (27.0-33.0); MEAN CORPUSCULAR HGB CONC 31.2 g/dl (32.0-36.5); MEAN CORPUSCULAR VOLUME 91.1 fl (80.0-96.0); PLATELET COUNT, AUTOMATED 240 10^3/uL (150-450); RED BLOOD COUNT 4.29 10^6/uL (4.00-5.40); WHITE BLOOD COUNT 9.6 10^3/uL (4.0-10.0)
[2021-07-29 08:16] LABS: ALBUMIN 2.4 GM/DL (3.2-5.2); ALT/SGPT 18 U/L (12-78); BILIRUBIN,TOTAL 0.6 MG/DL (0.2-1.0); BLOOD UREA NITROGEN 10 MG/DL (7-18); CARBON DIOXIDE LEVEL 28 MEQ/L (21-32); CHLORIDE LEVEL 104 MEQ/L (98-107); CREATININE FOR GFR 0.67 MG/DL (0.55-1.30); GLOMERULAR FILTRATION RATE > 60.0 (>32); GLUCOSE, FASTING 83 MG/DL (70-100); POTASSIUM SERUM 4.1 MEQ/L (3.5-5.1); SODIUM LEVEL 138 MEQ/L (136-145)
[2021-07-29] MEDS: ACETAMINOPHEN TAB 650MG DOSE (2X325MG) PO SCH (08:24)
[2021-07-29] MEDS: bisoproloL fumarate 5 MG TAB PO SCH (08:26)
[2021-07-29] MEDS: LACTOBACILLUS ACIDOPHILUS CAP (BACID) PO SCH (08:26)
[2021-07-29] MEDS ORDERED: TRAM50TA2 PO (12:53)
[2021-07-29] MEDS ORDERED: DOXY-350 PO (12:55)
--- NOTE | 2021-08-14 02:41 | DS.PDOC ---
Discharge Summary General Date of Admission Jul 27, 2021 at 11:46 Date of Discharge 07/29/21 Discharge Summary PROCEDURES PERFORMED DURING STAY: DATE OF OPERATION: 07/28/2021 PREOPERATIVE DIAGNOSIS: Hematoma on dorsal aspect of left foot. POSTOPERATIVE DIAGNOSIS: Hematoma on dorsal aspect of left foot. PROCEDURES PERFORMED: 1. Excision and drainage of hematoma, dorsal aspect of left foot. SURGEON: CHULA MONTELONGO DPM HEALTH AND SAFETY COORDINATOR: None. ESTIMATED BLOOD LOSS: 1 ml HEMOSTASIS: None. IRRIGATION: Dilute gentamicin solution. DESCRIPTION OF PROCEDURE: On 07/28/2021, this 86-year-old female was taken from her hospital room to the operating room and placed on the operating table in the supine position. Following induction of IV sedation and local regional anesthesia the left lower extremity was prepped and draped in usual aseptic manner. Attention was directed to the base of her left foot. There was noted to be a large hematoma. At this time, a 3 cm incision was placed on the dorsal aspect of the foot. A blackish-blue clot was noted in the subcutaneous and deeper structures. This was evacuated using a curette and finger manipulation. This was placed in a sterile specimen cup for aerobic and anaerobic culture. After the culture was removed from the operative table, then the wound was copiously lavaged and any remaining clot was removed with suction. The wound was closed with 4-0 Prolene in a simple interrupted type fashion. A compressive dressing was then placed on the dorsal aspect of the foot. Minimal bleeding was encountered. Capillary refilling time was present digits 1 through 5. No hemostasis was utilized or required. The patient having apparently tolerated the surgical procedure well was taken from the OR to the recovery room for further monitoring by the anesthesia department. Patient's antibiotics can be tailored according to her culture and sensitivity. DD: Chula Montelongo DPM, DPM 07/28/21 [id number] ADMITTING DIAGNOSES: L foot pain with swelling pain s/p foot trauma atrial fibrillation Iron deficiency anemia hx asthma DISCHARGE DIAGNOSES: L foot pain with swelling pain s/p foot trauma - hematoma on dorsal surface of L foot atrial fibrillation Iron deficiency anemia hx asthma COMPLICATIONS/CHIEF COMPLAINT: Cellulitis Of Foot Left. HISTORY OF PRESENT ILLNESS: "The patient is an 78 y/o female with past medical history of atrial fibrillation on anticoagulation, asthma, hyperlipidemia, iron deficiency anemia, insomnia who presented to [facility] after she complains of increased left foot pain, swelling over the past 2 weeks. The patient states 2 weeks ago she opened her refrigerator door and a quart bottle fell out of bed onto the dorsal part of her left foot. She stated it swelled up significantly and later became bruised. She said she iced it several times a day for over a week at home but despite her efforts in trying to control her pain persisted. She noticed that she was unable to weight-bear on the left foot. Pain was described as 10/10 especially with walking, sharp, lysed only in the foot. She also noted that a large bump later was seen in the area where it was directly hit by the bottle. She denies fevers, chills, nausea, vomiting, i ncreased shortness of breath from baseline, chest pain, lightheadedness, dizziness. She is having loose stools but this is chronic for one year. Due to her ongoing symptoms the patient came to the ER for further evaluation In the emergency room vital signs were stable. WBC elevated at 13.5 along with ESR and CRP. X-ray of the foot showed no evidence of an acute fracture dislocation or subluxation; however there was some concern by ER attending later spoke with orthopedic surgery. CT of the left foot is pending. Due to severe left foot pain and inability to weight-bear also concern for questionable infected hematoma, the patient was admitted for further treatment and investigation." HOSPITAL COURSE: Left foot pain with swelling s/p foot trauma - R/o fracture, infected area on foot - CT of LLE showing soft tissue swelling - leukocytosis has resolved. - Elevated ESR, CRP - patient was assessed by podiatry, Dr. Montelongo. S/p evacuation of hematoma, see report above - low suspicion for infection given no leukoctysis, no fever, no pus noted in OR - will DC patient with 7 days course of abx - will f/u cultures on outpatient basis Atrial fib -Currently controlled -On AC, holding for today -C/w BB JEANA -holding ferrous sulfate Asthma -Stable on RA -CXR neg DVT px -stanton/scds, xarelto held, can be resumed on 07/30/21 DISCHARGE MEDICATIONS: Please see below. ALLERGIES: Please see below. PHYSICAL EXAMINATION ON DISCHARGE: VITAL SIGNS: please see below General: NAD, comfortable HEENT: PERRLA, EOMI, sclerae clear Neck: supple, normal ROM, no JVD Respiratory: lungs CTAB, no wheeze, no rales, no crackles CVS: RRR, normal S1, S2, no murmurs Abdo: soft, no masses, no hepatosplenomegaly, BS+, no rebound tenderness Extremities: L foot dressing clean, intact, dry MSK: no joint deformities, normal ROM Neuro: no focal neuro deficits, moving all 4 extremities, CN2-12 intact. Strength 5/5 in all 4 extremities. No nystagmus. Psych: calm, cooperative, AAO x 3 LABORATORY DATA: Please see below. IMAGING: CT foot L w IV contrast (07/27/21): IMPRESSION: 1. Soft tissue swelling as described above. 2. No evidence of an acute osseous abnormality. XR left foot : No evidence of an acute osseous abnormality. CXR: No acute cardiopulmonary process appreciated. Stable hiatal hernia. PROGNOSIS: good ACTIVITY: walk with walker DIET: 2g sodium DISCHARGE PLAN: follow up with PCP. F/u Dr. Montelongo on 08/03/21. Continue to take doxycycline 100 mg twice per day x 7 days. Please resume taking xarelto on 07/30/21. DISPOSITION: Home, Self-Care. ITEMS TO FOLLOWUP ON ON OUTPATIENT: Final cultures DISCHARGE CONDITION: [Stable]. TIME SPENT ON DISCHARGE: 35 minutes Discharge Medications Scheduled Acetaminophen (Acetaminophen) 325 Mg Tablet, 650 MG PO TID, (Reported) Bisoprolol Fumarate (Bisoprolol Fumarate) 5 Mg Tablet, 7.5 MG PO BID, (Reported) Budesonide/Formoterol (Symbicort 160-4.5 Mcg Inhaler) 6 Gm Hfa.aer.ad, 2 PUFFS INH BID, (Reported) Calcium Carbonate/Vitamin D3 (Calcium 1,000 + D3 Caplet) 1 Each Tablet, 1 TAB PO DAILY, (Reported) LUNCH Cyanocobalamin (Vitamin B-12) (Vitamin B-12) 5,000 Mcg Tab.rapdis, 5,000 MCG PO DAILY, (Reported) LUNCH Doxycycline Monohydrate (Doxycycline) 100 Mg Capsule, 100 MG PO BID Ferrous Sulfate (Ferrous Sulfate) 325 Mg Tablet, 325 MG PO 3XW, (Reported) MON/WED/FRI AT NOON L.acidoph/L.bulg/B.bif/S.therm (Bacid Caplet) 1 Each Tablet, 1 TAB PO DAILY, (Reported) LUNCH Rivaroxaban (Xarelto) 20 Mg Tablet, 20 MG PO DAILY, (Reported) LUNCH Triamcinolone Acetonide (Nasacort) 10.8 Ml Leonardo, 2 SPRAY NARES BID, (Reported) Scheduled PRN Albuterol Sulfate (Ventolin Hfa) 18 Gm Hfa.aer.ad, 2 PUFF INH Q4H PRN for SOB/WHEEZING, (Reported) Diclofenac Sodium (Diclofenac Sodium) 1% 100GM Gel..gram., 2 GM TOP QHS PRN for KNEE PAIN, (Reported) Apply to area of pain Loperamide HCl (Anti-Diarrheal) 2 Mg Capsule, 4 MG PO Q6H PRN for DIARRHEA, (Reported) Melatonin (Melatonin) 10 Mg Capsule, 10 MG PO QHS PRN for SLEEP, (Reported) Psyllium Husk (with Sugar) (Metamucil Powder) 575 Gm Powder, 1 PKT PO BID PRN for CONSTIPATION, (Reported) Tramadol HCl (Tramadol HCl) 50 Mg Tablet, 50 MG PO Q6HP PRN for MODERATE PAIN (PS 5-7) Allergies Coded Allergies: Penicillins (Verified Allergy, Unknown, 07/27/21) Sulfa (Sulfonamide Antibiotics) (Verified Allergy, Unknown, 07/27/21) XENIA HUTCHINS MD Aug 14, 2021 02:41
== END 2021-07-29 16:18 | disposition home or self-care (01) | DRG 572 ==
LOC: EDBD 08:33 → M ED 08:33 → M ED INP 11:46 → ENRESERV 13:30 → M MSPAV 14:08
PROVIDERS: ADMIT Internal Medicine; ATTEND Family Medicine
PROC: 0JBR0ZZ Excision of Left Foot Subcutaneous Tissue and Fascia, Open Approach (ICD-10-PCS; principal; 2021-07-28 17:00)
DX: S90.32XA Contusion of left foot, initial encounter (principal); R19.7 Diarrhea, unspecified; I48.91 Unspecified atrial fibrillation; Z79.01 Long term (current) use of anticoagulants; J45.909 Unspecified asthma, uncomplicated; E78.5 Hyperlipidemia, unspecified; D50.9 Iron deficiency anemia, unspecified; G47.00 Insomnia, unspecified; W20.8XXA Other cause of strike by thrown, projected or falling object, initial encounter; Y92.009 Unspecified place in unspecified non-institutional (private) residence as the place of occurrence of the external cause

== ENCOUNTER → 2021-11-16 | Outpatient (CLI) | payer MEDICARE ==
[~2021-11-16] MED LIST changes: +APAP325T4 PO; +DICL1GEL3 TOP; +DOXY-350 PO; +FERR1TAB8 PO; +LOPE-26 PO; +META28.32 PO; +TRAM50TA2 PO
[2021-11-16 10:38] LABS: BASO # 0.1 10^3/uL (0.0-0.2); BASO % 0.5 % (0.0-1.0); EOS # 0.5 10^3/uL (0.0-0.5); EOS % 5.3 % (0.0-3.0); HEMATOCRIT 42.6 % (36.0-47.0); HEMOGLOBIN 13.6 g/dl (12.0-15.5); LYMPH # 1.5 10^3/uL (1.5-5.0); LYMPH % 16.7 % (24.0-44.0); MEAN CORPUSCULAR HEMOGLOBIN 31.7 pg (27.0-33.0); MEAN CORPUSCULAR HGB CONC 31.9 g/dl (32.0-36.5); MEAN CORPUSCULAR VOLUME 99.3 fl (80.0-96.0); MONO # 0.5 10^3/uL (0.0-0.8); MONO % 5.3 % (2.0-8.0); NEUTROPHILS # 6.5 10^3/uL (1.5-8.5); NEUTROPHILS % 71.4 % (36.0-66.0); PLATELET COUNT, AUTOMATED 237 10^3/uL (150-450); RED BLOOD COUNT 4.29 10^6/uL (4.00-5.40); WHITE BLOOD COUNT 9.1 10^3/uL (4.0-10.0)
[2021-11-16 11:16] LABS: ALT/SGPT 32 U/L (12-78); BILIRUBIN,TOTAL 0.6 MG/DL (0.2-1.0); BLOOD UREA NITROGEN 15 MG/DL (7-18); CALCIUM LEVEL 8.9 MG/DL (8.8-10.2); CARBON DIOXIDE LEVEL 30 MEQ/L (21-32); CHLORIDE LEVEL 107 MEQ/L (98-107); CHOLESTEROL LEVEL 155 MG/DL (<200); CREATININE FOR GFR 0.84 MG/DL (0.55-1.30); GLOMERULAR FILTRATION RATE > 60.0 (>32); GLUCOSE, FASTING 105 MG/DL (70-100); HDL CHOLESTEROL 54 MG/DL (>40); LDL CHOLESTEROL 79 MG/DL (<100); NON-HDL-C 101 MG/DL; POTASSIUM SERUM 4.3 MEQ/L (3.5-5.1); SODIUM LEVEL 141 MEQ/L (136-145); TOTAL PROTEIN 6.8 GM/DL (6.4-8.2); TRIGLYCERIDES LEVEL 112 MG/DL (<150)
== END ==
LOC: M PLALAB 07:19
PROVIDERS: ATTEND Internal Medicine
DX: E78.00 Pure hypercholesterolemia, unspecified (principal); Z86.2 Personal history of diseases of the blood and blood-forming organs and certain disorders involving the immune mechanism

== ENCOUNTER → 2022-01-23 | Outpatient (REF) | payer MEDICARE ==
[2022-01-23 17:32] LABS: RSV AMPLIFICATION NEGATIVE (NEGATIVE)
== END ==
LOC: M LAB REF 16:44
PROVIDERS: ATTEND Physician Assistant
DX: R50.9 Fever, unspecified (principal)

== ENCOUNTER → 2022-06-28 | Outpatient (CLI) | payer MEDICARE ==
[2022-06-28 10:41] LABS: HEMATOCRIT 42.2 % (36.0-47.0); HEMOGLOBIN 13.4 g/dl (12.0-15.5); MEAN CORPUSCULAR HEMOGLOBIN 33.1 pg (27.0-33.0); MEAN CORPUSCULAR HGB CONC 31.8 g/dl (32.0-36.5); MEAN CORPUSCULAR VOLUME 104.2 fl (80.0-96.0); PLATELET COUNT, AUTOMATED 229 10^3/uL (150-450); RED BLOOD COUNT 4.05 10^6/uL (4.00-5.40); WHITE BLOOD COUNT 7.5 10^3/uL (4.0-10.0)
[2022-06-28 11:03] LABS: HEMOGLOBIN A1c 5.5 %
[2022-06-28 11:24] LABS: ALBUMIN 2.9 GM/DL (3.2-5.2); ALT/SGPT 27 U/L (12-78); BILIRUBIN,TOTAL 0.5 MG/DL (0.2-1.0); BLOOD UREA NITROGEN 15 MG/DL (7-18); C REACTIVE PROTEIN QUANTITATIV 0.58 MG/DL (0.00-0.30); CALCIUM LEVEL 8.7 MG/DL (8.8-10.2); CARBON DIOXIDE LEVEL 26 MEQ/L (21-32); CHLORIDE LEVEL 106 MEQ/L (98-107); CHOLESTEROL LEVEL 139 MG/DL (<200); CHOLESTEROL RISK RATIO 2.957 (<5); CREATININE FOR GFR 0.94 MG/DL (0.55-1.30); FREE T4 0.97 NG/DL (0.76-1.46); GLOMERULAR FILTRATION RATE 59.7 (>32); GLUCOSE, FASTING 104 MG/DL (70-100); HDL CHOLESTEROL 47 MG/DL (>40); LDL CHOLESTEROL 66 MG/DL (<100); NON-HDL-C 92 MG/DL; POTASSIUM SERUM 4.1 MEQ/L (3.5-5.1); SODIUM LEVEL 137 MEQ/L (136-145); TOTAL PROTEIN 6.8 GM/DL (6.4-8.2); TRIGLYCERIDES LEVEL 132 MG/DL (<150)
[2022-06-28 11:42] LABS: MALB URINE SIEMENS 15.3 MG/L; MAU/CREAT RATIO 7.7 MCG/MG (0.0-30.0)
[2022-06-28 11:53] LABS: TOTAL 25(OH) VITAMIN D 48.7 NG/ML (30.0-100.0); VITAMIN B12 LEVEL > 2000 PG/ML (247-911)
== END ==
LOC: M PLALAB 07:20
PROVIDERS: ATTEND Internal Medicine Hematology
DX: E78.00 Pure hypercholesterolemia, unspecified (principal)

== ENCOUNTER → 2022-12-31 | Outpatient (CLI) | payer MEDICARE ==
[~2022-12-31] MED LIST changes: -DOXY-350 PO; +DOXY-444 PO; +SIMV-254 PO; -ZOCO40TA PO
[2022-12-31 10:57] LABS: HEMATOCRIT 44.3 % (36.0-47.0); HEMOGLOBIN 13.9 g/dl (12.0-15.5); MEAN CORPUSCULAR HEMOGLOBIN 32.7 pg (27.0-33.0); MEAN CORPUSCULAR HGB CONC 31.4 g/dl (32.0-36.5); MEAN CORPUSCULAR VOLUME 104.2 fl (80.0-96.0); PLATELET COUNT, AUTOMATED 246 10^3/uL (150-450); RED BLOOD COUNT 4.25 10^6/uL (4.00-5.40); WHITE BLOOD COUNT 10.7 10^3/uL (4.0-10.0)
[2022-12-31 11:28] LABS: ALBUMIN 2.9 G/DL (3.2-5.2); ALKALINE PHOSPHATASE 53 U/L (46-116); ALT/SGPT 31 U/L (7.0-40); AST/SGOT 36 U/L (<34); BILIRUBIN,TOTAL 0.7 MG/DL (0.3-1.2); BLOOD UREA NITROGEN 13 MG/DL (9-23); CALCIUM LEVEL 8.6 MG/DL (8.3-10.6); CARBON DIOXIDE LEVEL 29 MMOL/L (20-31); CHLORIDE LEVEL 106 MMOL/L (98-107); CHOLESTEROL LEVEL 152 MG/DL (<200); CREATININE FOR GFR 0.82 MG/DL (0.55-1.30); GLOMERULAR FILTRATION RATE > 60.0 (>32); GLUCOSE, FASTING 106 MG/DL (74-106); HDL CHOLESTEROL 60.8 MG/DL (>40); IRON (FE) 73 UG/DL (50-170); LDL CHOLESTEROL 71.4 MG/DL (<100); NON-HDL-C 91.2 MG/DL; PERCENT SATURATION 19.6 % (13.2-45.0); POTASSIUM SERUM 3.9 MMOL/L (3.5-5.1); SODIUM LEVEL 140 MMOL/L (136-145); THYROID STIMULATING HORMONE 1.444 uIU/ML (0.55-4.78); TOTAL IRON BINDING CAPACITY 373 UG/DL (250-425); TOTAL PROTEIN 6.5 G/DL (5.7-8.2); TRIGLYCERIDES LEVEL 99 MG/DL (<150)
[2022-12-31 11:30] LABS: VITAMIN B12 LEVEL 736 PG/ML (211-911)
[2022-12-31 11:31] LABS: TOTAL 25(OH) VITAMIN D 46.4 NG/ML (20.0-100.0)
== END ==
LOC: M PLALAB 07:13
PROVIDERS: ATTEND Internal Medicine Hematology
DX: E53.8 Deficiency of other specified B group vitamins (principal); Z86.2 Personal history of diseases of the blood and blood-forming organs and certain disorders involving the immune mechanism; E78.5 Hyperlipidemia, unspecified